=== PATIENT | female | born 1965 | race Caucasian/White ===

== ENCOUNTER 2019-03-09 11:50 | Emergency (ER) | payer SELFPAY ==
[~2019-03-09] VITALS: Ht 162.6 cm; Wt 108.9 kg
--- OUTSIDE RECORDS SUMMARY | 2019-03-09 12:02 | XMS REPORT ---
Author Author LIANNE MORENO [facility] Address [address] [place] [address] Care Team Providers Care Career Services Coordinator Name Role Phone LIANNE MORENO Unavailable PROBLEMS Type Condition ICD9-CM Code ATQ71-VO Code Onset Dates Condition Status SNOMED Code Problem Situational mixed anxiety and depressive disorder F43.23 Active 79598647 Problem History of myocardial infarction I25.2 Active 321468359 Problem Reflux esophagitis K21.0 Active 169190605 Problem Hypertension I10 Active 48961606 Problem Stress incontinence N39.3 Active 98689651 Problem Type 2 diabetes mellitus E11.9 Active 70389514 Problem Hiatal hernia K44.9 Active 67009483 Problem Coronary artery disease I25.10 Active 98509223 ALLERGIES No Information ENCOUNTERS Encounter Location Date Diagnosis [address] [address] Jan, Type 2 diabetes mellitus E11.9 and Hypertension I10 [address] [address] Jan, [address] [address] Jan, Morbid obesity E66.01 ; Type 2 diabetes mellitus E11.9 and Hypertension I10 [address] [address] Jan, [facility] [address] [id number] [id number] March, Dental examination Z01.20 and Dental caries K02.9 [facility] [address] [id number] [phone] March, Dental caries K02.9 and Dental examination Z01.20 [facility] [address] [id number] [id number] March, [facility] [address] [facility] [id number] [place] [address] March, Dental abscess K04.7 [facility] [address] [facility] [id number] [place] [address] May, IMMUNIZATIONS No Known Immunizations SOCIAL HISTORY Never Assessed REASON FOR VISIT Requests return call PLAN OF CARE VITAL SIGNS MEDICATIONS Medication Instructions Dosage Frequency Start Date End Date Duration Status Amlodipine Besylate 5 MG Orally Once a day 1 tablet 24h Jan, 30 day(s) Active Isosorbide Mononitrate ER 60 MG Orally Once a day 1 tablet in the morning 24h Jan, 30 day(s) Active RESULTS No Results PROCEDURES No Known procedures INSTRUCTIONS MEDICATIONS ADMINISTERED No Known Medications MEDICAL (GENERAL) HISTORY Type Description Date Medical History Coronary artery disease Medical History History of myocardial infarction Medical History Situational mixed anxiety and depressive disorder Medical History Reflux esophagitis Medical History Hiatal hernia Medical History Stress incontinence Medical History Type 2 diabetes mellitus Medical History Hypertension Surgical History Coronary artery bypass grafting 2006 Surgical History Coronary stent Surgical History upper endoscopy Surgical History hysterectomy for DUB Surgical History bladder suspension Surgical History left knee arthroscopic surgery Surgical History 2 c sections Surgical History ORIF jaw Hospitalization History surgery Hospitalization History when first DX with DM Hospitalization History surgery on jaw
--- OUTSIDE RECORDS SUMMARY | 2019-03-09 12:02 | XMS REPORT ---
Author Author LIANNE MORENO [facility] Address [address] [place] [address] Care Team Providers Care Shuttler Name Role Phone LIANNE MORENO Unavailable PROBLEMS Type Condition ICD9-CM Code FND18-AS Code Onset Dates Condition Status SNOMED Code Problem Breast tenderness 611.71 March, 0 13616602 Problem Morbid obesity with BMI of 45.0-49.9, adult 278.01 Oct, 0 098865542 Problem Urinary, incontinence, stress female 625.6 Oct, 0 80856134 Problem Well woman exam with routine gynecological exam V72.31 Sep, 0 [id number] Problem Hiatal hernia 553.3 Aug, 0 02469077 Problem Tobacco use 305.1 05 Sep, 2015 0 510899992 Problem Benign hypertension 401.1 March, 0 63027111 Problem Postoperative follow-up Z09 Oct, 0 792316770 Problem Tobacco use Z72.0 Sep, 0 490688687 Problem Midline cystocele 618.01 Oct, 0 379655992 Problem Patellofemoral syndrome, left 719.46 Oct, 0 552954087636673 Problem Situational mixed anxiety and depressive disorder 309.28 Oct, 0 35941906 Problem Postoperative follow-up V67.00 Oct, 0 266620592 Problem Morbid obesity with BMI of 45.0-49.9, adult E66.01 Oct, 0 335285260 Problem Well woman exam with routine gynecological exam Z01.419 Sep, 0 314811884062515 Problem Type 2 diabetes mellitus without complication E11.9 Jan, 0 337086318 Problem Patellofemoral syndrome, left M22.2X2 Oct, 0 489039870692166 Problem Urinary, incontinence, stress female N39.3 Oct, 0 14881411 Problem Midline cystocele N81.11 Oct, 0 273636253 Problem Breast tenderness N64.4 March, 0 28640851 Problem Benign hypertension I10 March, 0 41508258 Problem Type 2 diabetes mellitus without complication 250.00 Jan, 0 816860659 Problem Type 2 diabetes mellitus E11.9 Active 22528212 Problem Situational mixed anxiety and depressive disorder F43.23 Active 61555044 Problem Reflux esophagitis K21.0 Active 387211421 Problem Reflux esophagitis 530.11 0 457739852 Problem Hypertension I10 Active 47943196 Problem CAD (coronary artery disease) 414.00 Feb, 0 78290591 Problem CAD (coronary artery disease) I25.10 14 Feb, 2011 0 76392893 Problem History of myocardial infarction I25.2 Active 626181784 Problem Stress incontinence N39.3 Active 99450082 Problem Hiatal hernia K44.9 Active 12778939 Problem Coronary artery disease I25.10 Active 94382581 ALLERGIES No Information ENCOUNTERS Encounter Location Date Diagnosis [address] [address] Jan, Type 2 diabetes mellitus E11.9 and Hypertension I10 [address] [address] Jan, [address] [address] Jan, Morbid obesity E66.01 ; Type 2 diabetes mellitus E11.9 and Hypertension I10 [address] [address] Jan, [facility] [address] [address] Oct, [facility] [address] [id number] March, Dental examination Z01.20 and Dental caries K02.9 [facility] [address] [id number] March, Dental caries K02.9 and Dental examination Z01.20 [facility] [address], [place] [address] March, [facility] [address] [facility] [id number][place] [address] March, Dental abscess K04.7 [facility] [address] [facility] [id number][place] [address] May, [facility] [address] [facility] [id number], [place] [address] Jan, [facility] [address] [id number] [address] Nov, [facility] [address] [facility] [id number], [place] [address] Dec, [facility] [address] [facility] [id number], [place] [address] May, IMMUNIZATIONS No Known Immunizations SOCIAL HISTORY Never Assessed REASON FOR VISIT Lab (walk-in) PLAN OF CARE VITAL SIGNS MEDICATIONS Unknown Medications RESULTS No Results PROCEDURES Procedure Date Ordered Result Body Site VENIPUNCT, ROUTINE* January 12, 2019 MICROALBUMIN, QUANTITATIVE January 12, 2019 ASSAY OF URINE CREATININE January 12, 2019 Hemoglobin Test Send Out 0 dollar January 12, 2019 COMPREHEN METABOLIC PANEL January 12, 2019 INSTRUCTIONS MEDICATIONS ADMINISTERED No Known Medications MEDICAL [...]
--- OUTSIDE RECORDS SUMMARY | 2019-03-09 12:02 | XMS REPORT ---
Author Author LIANNE MORENO [facility] Address [address] [place] [address] Care Team Providers Care Director Utilization Management Name Role Phone LIANNE MORENO Unavailable PROBLEMS Type Condition ICD9-CM Code HNS06-DP Code Onset Dates Condition Status SNOMED Code Problem Situational mixed anxiety and depressive disorder F43.23 Active 98595333 Problem History of myocardial infarction I25.2 Active 997596237 Problem Reflux esophagitis K21.0 Active 677497897 Problem Hypertension I10 Active 46812862 Problem Stress incontinence N39.3 Active 30861850 Problem Type 2 diabetes mellitus E11.9 Active 61903960 Problem Hiatal hernia K44.9 Active 82203223 Problem Coronary artery disease I25.10 Active 06880549 ALLERGIES Substance Reaction Event Type Date Status Keflex nausea Drug Allergy Jan, Active Paper Tapes rash Non Drug Allergy Jan, Active ENCOUNTERS Encounter Location Date Diagnosis [address] [address] Jan, Type 2 diabetes mellitus E11.9 and Hypertension I10 [address] [address] Jan, [address] [address] Jan, Morbid obesity E66.01 ; Type 2 diabetes mellitus E11.9 and Hypertension I10 [address] [address] Jan, [facility] [address] [id number] [id number] March, Dental examination Z01.20 and Dental caries K02.9 [facility] [address] [id number] [id number] March, Dental caries K02.9 and Dental examination Z01.20 [facility] [address] [facility] [id number] [place] [address] March, [facility] [address] [facility] [id number] [place] [address] March, Dental abscess K04.7 [facility] [address] [facility] [id number] [place] [address] May, IMMUNIZATIONS No Known Immunizations SOCIAL HISTORY Never Assessed REASON FOR VISIT Establish Care, needs put back on DM needs.Kcox PLAN OF CARE Activity Details Follow Up 3 months or as indicated by lab, Reason: VITAL SIGNS Height 64 in 2019-01-10 Weight 236 lbs 2019-01-10 Temperature 99.2 degrees Fahrenheit 2019-01-10 Heart Rate 84 bpm 2019-01-10 Respiratory Rate 18 2019-01-10 BMI 40.5 kg/m2 2019-01-10 Blood pressure systolic 180 mmHg 2019-01-10 Blood pressure diastolic 110 mmHg 2019-01-10 MEDICATIONS Medication Instructions Dosage Frequency Start Date End Date Duration Status Levemir FlexTouch 100 UNIT/ML Subcutaneous at bedtime inject 45 units Jan, 30 days Active Coreg 25 MG Orally 2 times a day 1 tab 12h Active Ibuprofen Active Tylenol Not-Taking Lantus Not-Taking VESIcare 5 MG Orally Once a day 1 tablet 24h Jan, 30 day(s) Active Lisinopril 20 MG Orally Once a day 1 tablet 24h Active RESULTS No Results PROCEDURES No Known [...] Hypertension Surgical History Coronary artery bypass grafting 2007 Surgical History Coronary stent Surgical History upper endoscopy Surgical History hysterectomy for DUB Surgical History bladder suspension Surgical History left knee arthroscopic surgery Surgical History 2 c sections Surgical History ORIF jaw Hospitalization History surgery Hospitalization History when first DX with DM Hospitalization History surgery on jaw
--- OUTSIDE RECORDS SUMMARY | 2019-03-09 12:03 | XMS REPORT ---
Author Author CHAU JONES Organization [facility] Address [address] [place] [address] Care Team Providers Care Ticket Maker Name Role Phone CHAU JONES Unavailable PROBLEMS Unknown Problems ALLERGIES No Information ENCOUNTERS Encounter Location Date Diagnosis [facility] [id number] [place] [id number] March, Dental examination Z01.20 and Dental caries K02.9 [facility] [id number] [place] [id number] March, Dental caries K02.9 and Dental examination Z01.20 [facility] [id number] [place] [address] March, [facility] [id number] [place] [address] March, Dental abscess K04.7 [facility] [id number] [place] [address] May, IMMUNIZATIONS No Known Immunizations SOCIAL HISTORY Never Assessed REASON FOR VISIT Tooth pain PLAN OF CARE VITAL SIGNS MEDICATIONS Medication Instructions Dosage Frequency Start Date End Date Duration Status Amoxicillin 500 MG Orally every 8 hrs 1 capsule 8h March, 10 day( s) Active RESULTS No Results PROCEDURES No Known procedures INSTRUCTIONS MEDICATIONS ADMINISTERED No Known Medications MEDICAL (GENERAL) HISTORY Type Description Date Medical History Type II Diabetes Medical History Heart Attack, bypass 2007 with one stint Surgical History bypass surgery wwith one stint 2007 Hospitalization History surgery
--- OUTSIDE RECORDS SUMMARY | 2019-03-09 12:03 | XMS REPORT ---
Author Author BAN MORRIS Organization [facility] Address [address] [place] [address] Care Team Providers Care Side Seam Machine Operator Name Role Phone BAN MORRIS Unavailable PROBLEMS Unknown Problems ALLERGIES Substance Reaction Event Type Date Status Keflex nausea Drug Allergy March, Active Paper Tapes rash Non Drug Allergy March, Active ENCOUNTERS Encounter Location Date Diagnosis [facility] [address] [id number] March, Dental examination Z01.20 and Dental caries K02.9 [facility] [address] [id number] March, Dental caries K02.9 and Dental examination Z01.20 [facility] [id number] [place] [address] March, [facility] [address] [id number] March, Dental abscess K04.7 [facility] [id number] [place] [address] May, IMMUNIZATIONS No Known Immunizations SOCIAL HISTORY Never Assessed REASON FOR VISIT Severe tooth pain q 5 days, dental anxiety PLAN OF CARE Activity Details Follow Up TIFFANY Reason:MICHI VITAL SIGNS Blood pressure systolic 148 mmHg 2018-03-22 Blood pressure diastolic 98 mmHg 2018-03-22 MEDICATIONS Medication Instructions Dosage Frequency Start Date End Date Duration Status Lisinopril Active Coreg Active Tylenol Active Ibuprofen Active Lantus Active RESULTS No Results PROCEDURES Procedure Date Ordered Result Body Site INTRAORL-PERIAPICAL 1 FILM 81505 March 22, 2018 INTRAORL-PERIAPICAL EA ADD FILM March 22, 2018 Billing Notes on claim March 22, 2018 SCREENING OF A PATIENT March 22, 2018 INSTRUCTIONS MEDICATIONS ADMINISTERED No Known Medications MEDICAL (GENERAL) HISTORY Type Description Date Medical History Type II Diabetes Medical History Heart Attack, bypass 2006 with one stint Surgical History bypass surgery wwith one stint 2006 Hospitalization History surgery
--- OUTSIDE RECORDS SUMMARY | 2019-03-09 12:03 | XMS REPORT ---
Author Author DickNAGI Organization [facility] Address [address] [place] [address] Care Team Providers Care Web Press Operator Apprentice Name Role Phone NAGI Jennings Unavailable PROBLEMS Unknown Problems ALLERGIES Substance Reaction Event Type Date Status Keflex nausea Drug Allergy March, Active Paper Tapes rash Non Drug Allergy March, Active ENCOUNTERS Encounter Location Date Diagnosis [facility] [id number] [place] [phone] March, Dental examination Z01.20 and Dental caries K02.9 [facility] [id number] [place] [id number] March, Dental caries K02.9 and Dental examination Z01.20 [facility] [id number] [place] [address] March, [facility] [id number] [place] [address] March, Dental abscess K04.7 [facility] [id number] [place] [address] May, IMMUNIZATIONS No Known Immunizations SOCIAL HISTORY Never Assessed REASON FOR VISIT Dental Exam PLAN OF CARE Activity Details Follow Up prn Reason:JULIA VITAL SIGNS Blood pressure systolic 162 mmHg 2018-03-23 Blood pressure diastolic 108 mmHg 2018-03-23 MEDICATIONS Medication Instructions Dosage Frequency Start Date End Date Duration Status Amoxicillin 500 MG Orally every 8 hrs 1 capsule 8h March, 10 day( s) Active Ibuprofen Active Lantus Active Tylenol Active Lisinopril Active Coreg Active RESULTS No Results PROCEDURES Procedure Date Ordered Result Body Site LTD ORAL EVALUATION - PROBLEM FOCUS March 23, 2018 EXTRAC ERUPTED TOOTH/EXPOSED ROOT March 23, 2018 INSTRUCTIONS MEDICATIONS ADMINISTERED No Known Medications MEDICAL (GENERAL) HISTORY Type Description Date Medical History Type II Diabetes Medical History Heart Attack, bypass 2006 with one stint Surgical History bypass surgery wwith one stint 2006 Hospitalization History surgery
--- OUTSIDE RECORDS SUMMARY | 2019-03-09 12:03 | XMS REPORT ---
Author Author MAGALY DEAN [facility] Address Unknown Care Team Providers Care Dredge Hand Name Role Phone MAGALY DEAN Unavailable PROBLEMS Unknown Problems ALLERGIES Substance Reaction Event Type Date Status Keflex nausea Drug Allergy March, Active Paper Tapes rash Non Drug Allergy March, Active ENCOUNTERS Encounter Location Date Diagnosis [facility] [id number] [place] [id number] March, Dental examination Z01.20 and Dental caries K02.9 [facility] [id number] [place] [phone] March, Dental caries K02.9 and Dental examination Z01.20 [facility] [id number] [place] [address] March, [facility] [id number] [place] [address] March, Dental abscess K04.7 [facility] [id number] [place] [address] May, IMMUNIZATIONS No Known Immunizations SOCIAL HISTORY Never Assessed REASON FOR VISIT MICHI PLAN OF CARE Activity Details Follow Up prn Reason:mari/hygiene VITAL SIGNS Blood pressure systolic 160 mmHg 2018-03-29 Blood pressure diastolic 99 mmHg 2018-03-29 MEDICATIONS Medication Instructions Dosage Frequency Start Date End Date Duration Status Amoxicillin 500 MG Orally every 8 hrs 1 capsule 8h March, 10 day( s) Active Lantus Active Coreg Active Ibuprofen Active Tylenol Active Lisinopril Active RESULTS No Results PROCEDURES Procedure Date Ordered Result Body Site LTD ORAL EVALUATION - PROBLEM FOCUS March 29, 2018 BITEWING - SINGLE FILM March 29, 2018 EXTRAC ERUPTED TOOTH/EXPOSED ROOT March 29, 2018 EXTRAC ERUPTED TOOTH/EXPOSED ROOT March 29, 2018 INSTRUCTIONS MEDICATIONS ADMINISTERED No Known Medications MEDICAL (GENERAL) HISTORY Type Description Date Medical History Type II Diabetes Medical History Heart Attack, bypass 2006 with one stint Surgical History bypass surgery wwith one stint 2006 Hospitalization History surgery
[2019-03-09] MEDS ORDERED: morphine INJ 10 MG/ML 1ML (SYR OR VIAL) IVP STA (12:09)
[2019-03-09 12:13] LABS: HEMOGLOBIN 14.2 G/DL (11.5-16.0); WHITE BLOOD COUNT 11.2 10^3/uL (4.3-11.0)
[2019-03-09 12:14] LABS: MEAN PLATELET VOLUME 11.1 FL (7.4-10.4); RED CELL DISTRIBUTION WIDTH 13.2 % (10.0-14.5)
[2019-03-09] MEDS ORDERED: ONDANSETRON 4 MG/2 ML (SDV) Z0FRAN IVP ONE (12:15)
[2019-03-09] MEDS ORDERED: NS IV 1000 ML 1,000 ML IV SCH (12:15)
--- NOTE | 2019-03-09 12:33 | ED Headache ---
General Chief Complaint: Head/Cervical Problems Stated Complaint: LT EYE ISSUE; HIGH BP; HEADACHE Source: patient History of Present Illness Date Seen by Provider: March 09, 2019 Time Seen by Provider: 11:30 Initial Comments She is a 53-year-old female presents with sudden onset headache while at work, left scleral hemorrhage and hypertension. Patient denies history of headaches and states blood pressures normally well controlled. Headache is described as dull aching is associated with nausea. No neck pain, stiffness. No sinus pain, tenderness, congestion. No fever chills or sweats. No chest pain or shortness of breath. [facility] and was referred to the ED for further evaluation. Timing/Duration: 1-3 hours Severity/Quality: severe Location: frontal Prior Headaches/Recent Trauma: no recent headache/trauma Modifying Factors: improves with rest Associated Symptoms: denies symptoms; No confusion, No fatigue, No facial pain , No loss of consciousness, No numbness in legs/feet, No rash, No sinus infection, No stiff neck, No vision changes, No weakness Allergies and Home Medications Allergies Coded Allergies: cephalexin (Verified Allergy, Unknown, vomiting, 03/09/19) Uncoded Allergies: PAPER TAPE (Allergy, Unknown, 03/09/19) Patient Home Medication List Home Medication List Reviewed: Yes Review of Systems Review of Systems Constitutional: no symptoms reported, see HPI Eyes: No Symptoms Reported, See HPI; Denies Blurred Vision Ears, Nose, Mouth, Throat: no symptoms reported, see HPI, ear pain Respiratory: no symptoms reported, see HPI Cardiovascular: no symptoms reported, see HPI Genitourinary: no symptoms reported Musculoskeletal: no symptoms reported, see HPI Skin: no symptoms reported, see HPI Psychiatric/Neurological: No Symptoms Reported, See HPI Past Lrxndnb-Twrfzv-Vbqcoi Hx Past Med/Social Hx: Reviewed Nursing Past Med/Soc Hx Physical Exam Vital Signs Capillary Refill : Height, Weight, BMI Height: '" Weight: lbs. oz. kg; BMI Method: General Appearance: WD/WN, mild distress HEENT: normal ENT inspection, other (left subconjunctival hemorrhage) Neck: non-tender, full range of motion, supple Cardiovascular: regular rate, rhythm Respiratory: chest non-tender, lungs clear Gastrointestinal: normal bowel sounds Back: normal inspection Psychiatric: alert, oriented x 3 Crainal Nerves: normal hearing, normal speech, PERRL Coordination/Gait: normal gait Motor/Sensory: no motor deficit, no sensory deficit Progress/Results/Core Measures Results/Orders Lab Results Laboratory Tests Test 03/09/19 12:06 Range/Units White Blood Count 11.2 H 4.3-11.0 10^3/uL Red Blood Count 4.76 4.35-5.85 10^6/uL Hemoglobin 14.2 11.5-16.0 G/DL Hematocrit 43 35-52 % Mean Corpuscular Volume 89 80-99 FL Mean Corpuscular Hemoglobin 30 25-34 PG Mean Corpuscular Hemoglobin Concent 33 32-36 G/DL Red Cell Distribution Width 13.2 10.0-14.5 % Platelet Count 241 130-400 10^3/uL Mean Platelet Volume 11.1 H 7.4-10.4 FL Sodium Level 142 135-145 MMOL/L Potassium Level 3.8 3.6-5.0 MMOL/L Chloride Level 104 98-107 MMOL/L Carbon Dioxide Level 28 21-32 MMOL/L Anion Gap 10 5-14 MMOL/L Blood Urea Nitrogen 17 7-18 MG/DL Creatinine 0.60 0.60-1.30 MG/DL Estimat Glomerular Filtration Rate > 60 BUN/Creatinine Ratio 28 Glucose Level 191 H 70-105 MG/DL Calcium Level 9.2 8.5-10.1 MG/DL My Orders Orders - BLANCA GOINS DO Ct Head Wo (03/09/19 11:57) Cbc No Diff (03/09/19 11:57) Basic Metabolic Panel (03/09/19 11:57) Ondansetron Injection (Zofran Injectio (03/09/19 12:15) Morphine Injection (Morphine Injection (03/09/19 12:09) Ns Iv 1000 Ml (Sodium Chloride 0.9%) (03/09/19 12:15) Medications Given in ED Current Medications Medications Dose Ordered Sig/Gerardo Route Start Time Stop Time Status Last Admin Dose Admin Ondansetron HCl 4 mg ONCE ONCE IVP 03/09/19 12:15 03/09/19 12:16 DC 03/09/19 12:35 4 MG Departure Communication (Admissions) Patient resting comfortably, symptoms improved with treatment of pain. No neurologic deficits on exam. Blood pressure improved likely secondary to pain.. Findings of chronic left maxillary sinusitis likely contributing to symptoms. Will place patient on prolonged course of antibiotics, follow up with PCP for reevaluation. Return precautions reviewed. Patient verbalizes understanding Gribben discharge instructions prior to departure. Impression Primary Impression: Headache Additional Impression: Maxillary sinusitis, chronic Disposition: 01 HOME, SELF-CARE Condition: Improved Departure-Patient Inst. Referrals: [facility]/DANILO (PCP) Primary Care Physician LIANNE MORENO APRN (Family) Primary Care Physician Patient Instructions: Chronic Sinusitis, Headache, Adult (DC) Add. Discharge Instructions: Please take antibiotics as directed, ibuprofen for pain and hydrocodone as needed for additional relief. Follow-up with your PCP in 1-2 weeks for reevaluation. Return to the ED if new or worsening symptoms. All discharge instructions reviewed with patient and/or family. Voiced understanding. Scripts Amoxicillin (Amoxicillin) 875 Mg Tablet 875 MG PO BID, #28 TAB Prov: BLANCA GOINS DO 03/09/19 Hydrocodone/Acetaminophen (Gates 5-325 Tablet) 1 Each Tablet 1 TAB PO Q4-6HR for Pain MDD 10 TABS for 7 Days, #10 TAB Prov: BLANCA GOINS DO 03/09/19 BLANCA GOINS DO March 09, 2019 12:33
--- NOTE | 2019-03-09 12:34 | Diagnostic Imaging Report ---
CLINICAL INDICATION: Patient with eye irritation, headache, and high blood pressure. EXAM: Axial CT scan of the brain without IV contrast. COMPARISON: None. FINDINGS: There is no evidence of acute cerebral infarct, intracranial hemorrhage, or gross mass effect. There is brain parenchymal volume loss mainly in the frontal region. There is normal stokes-white matter distinction. There is no significant midline shift or herniation. There is no evidence of hydrocephalus. The basal cisterns are unremarkable. The skull, extracranial soft tissue, and orbits are unremarkable. There is incompletely imaged consolidation of the left maxillary sinus with chronic bony sclerosis and thickening in the region. Temporal bones show no significant abnormality. IMPRESSION: 1: There is no evidence of acute intracranial process. 2: Incompletely imaged left maxillary sinusitis. Dictated by: Dictated on workstation # [id number]
[2019-03-09 12:38] LABS: BUN/CREATININE RATIO 28; CALCIUM 9.2 MG/DL (8.5-10.1); CARBON DIOXIDE 28 MMOL/L (21-32); CHLORIDE 104 MMOL/L (98-107); GFR ESTIMATED > 60; GLUCOSE 191 MG/DL (70-105); POTASSIUM 3.8 MMOL/L (3.6-5.0); SODIUM 142 MMOL/L (135-145)
[2019-03-09] MEDS ORDERED: HYDR-4226 PO (12:51)
[2019-03-09] MEDS ORDERED: AMOX875T2 PO (12:52)
[2019-03-09 13:04] VITALS: BP 150/72
== END 2019-03-09 13:19 | disposition home or self-care (01) ==
LOC: ER FS 11:53
DX: R51 Headache (principal); J32.0 Chronic maxillary sinusitis; I10 Essential (primary) hypertension; Z88.1 Allergy status to other antibiotic agents; Z91.048 Other nonmedicinal substance allergy status
CPT/HCPCS: 36415; 70450; 80048; 85027

== ENCOUNTER 2020-04-07 23:15 | Day surgery (SDC) | payer SELFPAY ==
[~2020-04-07] VITALS: Ht 162.5 cm; Wt 115.8 kg
[2020-04-07 23:15] VITALS: BP 157/73
[~2020-04-07 23:15] MED LIST: ALPRAZolam 0.25 MG (XANAX) TAB PO PRN; AMOX875T2 PO; DOCUSATE SODIUM 100 MG (COLACE) CAP PO PRN; HYDR-4226 PO; IBUPROFEN TABLET 200 MG TAB PO PRN; MELATONIN 3 MG TABLET PO PRN; ONDANSETRON 4 MG/2 ML (SDV) Z0FRAN IVP PRN; diphenhydrAMINE 25 MG TAB (BENADRYL) PO PRN; fentaNYL INJECTION 100 MCG/2 ML AMP IVP PRN; guaiFENesin/DM (ROBITUSSIN DM) 10 ML UDC PO PRN; polyethylene glycoL POWDER 17 GM (MIRALAX) PACK PO PRN
--- NOTE | 2020-04-07 23:15 | NUR ---
MARGO OCONNOR admitted to room CU8-1, with an admitting diagnosis of chest pain, shortness of breath, on 04/07/20 from [facility] via EMS, accompanied by EMS staff. MARGO OCONNOR introduced to surroundings, call light, bed controls, phone, TV, temperature control, lights, meal times, smoking policy, visitor policy, side rail policy, bathrooms and showers. Patient Rights given to patient in the handbook. MARGO OCONNOR verbalizes understanding that [facility] is not responsible for the loss or damage to any personal effects or valuables that are kept in the patients possession during their hospitalization. The following Patient Care Plans were discussed with the patient: Discharge Planning, pain management,activity, and room orientation. MARGO OCONNOR verbalizes understanding of Interdisciplinary Patient Education. Patient and/or family were informed about the Rapid Response Team and its purpose.
--- OUTSIDE RECORDS SUMMARY | 2020-04-07 23:28 | XMS REPORT | Continuity of Care Document ---
Author Organization Unknown Address Unknown Phone Unavailable Allergies Active Description Code Type Severity Reaction Onset Reported/Identified Relationship to Patient Clinical Status Yes cephalexin [id number] Drug Allerg y Unknown vomiting 03/09/2019 Yes PAPER TAPE PAPER TAPE Unknown N/A 03/09/2019 Medications There is no data. Problems Date Dx Coded Attending Type Code Diagnosis Diagnosed By 03/09/2019 BLANCA GOINS DO, Ot I10 ESSENTIAL (PRIMARY) HYPERTENSION 03/09/2019 BLANCA GOINS DO Ot J32.0 CHRONIC MAXILLARY SINUSITIS 03/09/2019 BRISEIDA REINA BLANCA Ot R51 HEADACHE 03/09/2019 BLANCA GOINS DO Ot Z88.1 ALLERGY STATUS TO OTHER ANTIBIOTIC AGENT 03/09/2019 BLANCA GOINS DO Ot Z91.048 OTHER NONMEDICINAL SUBSTANCE ALLERGY STA 2019 BLANCA GOINS DO Ot I10 ESSENTIAL (PRIMARY) HYPERTENSION 2019 BLANCA GOINS DO Ot J32.0 CHRONIC MAXILLARY SINUSITIS 2019 BLANCA GOINS DO Ot R51 HEADACHE 2019 BLANCA GOINS DO Ot Z88.1 ALLERGY STATUS TO OTHER ANTIBIOTIC AGENT 2019 BLANCA GOINS DO Ot Z91.048 OTHER NONMEDICINAL SUBSTANCE ALLERGY STA Procedures There is no data. Results Test Result Range A1C - 01/12/19 11:12 HEMOGLOBIN A1c 11.6 % of total Hgb <5.7 Automated blood complete blood count (he mogram) panel - 03/09/19 12:06 Blood leukocytes automated count (number/volume) 11.2 10*3/uL 4.3-11.0 Blood erythrocytes automated count (number/volume) 4.76 10*6/uL 4.35-5.85 Venous blood hemoglobin measurement (mass/volume) 14.2 g/dL 11.5-16.0 Blood hematocrit (volume fraction) 43 % 35-52 Automated erythrocyte mean corpuscular volume 89 [ foz_us] 80-99 Automated erythrocyte mean corpuscular h emoglobin (mass per erythrocyte) 30 pg 25-34 Automated erythrocyte mean corpuscular h emoglobin concentration measurement (mass/volume) 33 g/dL 32-36 Automated erythrocyte distribution width ratio 13. 2 % 10.0- 14.5 Automated blood platelet count (count/volume) 241 10*3/uL 130-400 Automated blood platelet mean volume measurement 11.1 [foz_us] 7.4-10.4 Whole blood basic metabolic panel - 12/27 12:06 Serum or plasma sodium measurement (moles/volume) 142 mmol/L 135-145 Serum or plasma potassium measurement (moles/volume) 3.8 mmol/L 3.6-5.0 Serum or plasma chloride measurement (moles/volume) 104 mmol/L 98-107 Carbon dioxide 28 mmol/L 21-32 Serum or plasma anion gap determination (moles/volume) 10 mmol/L 5-14 Serum or plasma urea nitrogen measurement (mass/volume ) 17 mg/dL 7-18 Serum or plasma creatinine measurement (mass/volume) 0.60 mg/dL 0.60-1.30 Serum or plasma urea nitrogen/creatinine mass ratio 28 NRG Serum or plasma creatinine measurement w ith calculation of estimated glomerular filtration rate > NRG Serum or plasma glucose measurement (mass/volume) 191 mg/dL 70-105 Serum or plasma calcium measurement (mass/volume) 9.2 mg/dL 8.5-10.1 LIPID PANEL - 10/16/19 09:35 CHOLESTEROL, TOTAL 190 mg/dL <200 HDL CHOLESTEROL 45 mg/dL >50 TRIGLYCERIDES 148 mg/dL <150 LDL-CHOLESTEROL 119 mg/dL (calc) NRG CHOL/HDLC RATIO 4.2 (calc) <5.0 NON HDL CHOLESTEROL 145 mg/dL (calc) <13 0 CMP - 10/16/19 09:35 GLUCOSE 254 mg/dL 65-99 UREA NITROGEN (BUN) 21 mg/dL 7-25 CREATININE 0.73 mg/dL 0.50-1.05 eGFR NON-AFR. CAMBODIAN 94 mL/min/1.73m2 > OR = 60 eGFR 109 mL/min/1.73m2 > OR = 60 BUN/CREATININE RATIO NOT APPLICABLE (calc) 6-22 SODIUM 140 mmol/L 135-146 POTASSIUM 4.2 mmol/L 3.5-5.3 CHLORIDE 106 mmol/L 98-110 CARBON DIOXIDE 25 mmol/L 20-32 CALCIUM 8.9 mg/dL 8.6-10.4 PROTEIN, TOTAL 5.8 g/dL 6.1-8.1 ALBUMIN 3.8 g/dL 3.6-5.1 GLOBULIN 2.0 g/dL (calc) 1.9-3.7 ALBUMIN/GLOBULIN RATIO 1.9 (calc) 1.0-2. 5 BILIRUBIN, TOTAL 0.4 mg/dL 0.2-1.2 ALKALINE PHOSPHATASE 83 U/L 33-130 AST 8 U/L 10-35 ALT 9 U/L 6-29 Encounters ACCT No. Visit Date/Time Discharge Status Pt. Type Provider Facility Loc./Unit Complaint [id number] 03/09/2019 11:20:00 03/09/2019 23:59: 59 CLS Outpatient LIANNE MORENO [facility] [id number] 10/16/2019 08:40:00 Document Registration [id number] 01/12/2019 12:00:00 Document Registration [id number] 11/22/2019 12:30:00 23:59:59 CLS ARIEL Buchanan MD [facility] CARD CHEST PAIN,CORONARY ART DISEASE,HYPERTENSION [id number] 11/20/2019 10:30:00 23:59:59 CLS ARIEL Buchanan MD [facility] CARD CHEST PAIN,CORONARY ART DISEASE,ESSENTIAL HYPERTEN [id number] 03/09/2019 11:53:00 13:19:00 DIS Emergency BLANCA GOINS DO [facility] ER FS LT EYE ISSUE; HIGH BP; HEADACHE
[2020-04-07 23:30] VITALS: BP 152/83
[2020-04-07 23:45] VITALS: BP 164/93
[2020-04-08] VITALS (25 sets, daily range): BP systolic 122–167; BP diastolic 69–110
[2020-04-08] MEDS: ENOXAPARIN 40 MG/0.4 ML (LOVENOX) SYR SC SCH
[2020-04-08] MEDS: ACETAMINOPHEN 325 MG TABLET PO PRN ×2 (00:01→22:18)
--- NOTE | 2020-04-08 00:32 | NUR ---
Call to E ICU, update given to the Dr. Orders requested for Levemir insulin scheduled and Nitro PRN.
[2020-04-08] MEDS ORDERED: diphenhydrAMINE 25 MG TAB (BENADRYL) PO PRN (00:45)
[2020-04-08] MEDS: NITROGLYCERIN 0.4 MG SL TABS BTL 25'S SL PRN ×2 (01:10→01:17)
--- NOTE | 2020-04-08 01:10 | NUR ---
Nitro SL x 1 admin at this time for c/o CP @ 6 on 1-10 pain scale. BP 167/95
--- NOTE | 2020-04-08 01:16 | NUR ---
BP 134/84
--- NOTE | 2020-04-08 01:17 | NUR ---
Nitro x 1 admin at this time. CP rated 6
[2020-04-08 03:38] LABS: BASOPHILS % (AUTO) 0 % (0-10); EOSINOPHILS # (AUTO) 0.1 10^3/uL (0.0-0.3); EOSINOPHILS % (AUTO) 1 % (0-10); HEMATOCRIT 42 % (35-52); HEMOGLOBIN 14.4 G/DL (11.5-16.0); LYMPHOCYTES # (AUTO) 4.2 X 10^3 (1.0-4.0); LYMPHOCYTES % (AUTO) 38 % (12-44); MEAN CORPUSCULAR HEMOGLOBIN 31 PG (25-34); MEAN CORPUSCULAR HGB CONC 34 G/DL (32-36); MEAN CORPUSCULAR VOLUME 90 FL (80-99); MEAN PLATELET VOLUME 11.7 FL (7.4-10.4); MONOCYTES # (AUTO) 0.8 X 10^3 (0.0-1.0); MONOCYTES % (AUTO) 7 % (0-12); NEUTROPHILS # (AUTO) 5.8 X 10^3 (1.8-7.8); NEUTROPHILS % (AUTO) 54 % (42-75); PLATELET COUNT 192 10^3/uL (130-400); RED CELL DISTRIBUTION WIDTH 13.6 % (10.0-14.5); WHITE BLOOD COUNT 10.8 10^3/uL (4.3-11.0)
[2020-04-08 03:44] LABS: CHLORIDE 101 MMOL/L (98-107); POTASSIUM 3.8 MMOL/L (3.6-5.0); SODIUM 137 MMOL/L (135-145)
[2020-04-08 03:45] LABS: CALCIUM 9.4 MG/DL (8.5-10.1)
[2020-04-08 03:46] LABS: GLUCOSE 301 MG/DL (70-105)
[2020-04-08 03:47] LABS: CARBON DIOXIDE 23 MMOL/L (21-32)
[2020-04-08 03:49] LABS: CREATININE SERUM 0.86 MG/DL (0.60-1.30); GFR ESTIMATED > 60; PHOSPHORUS 4.3 MG/DL (2.3-4.7)
[2020-04-08 03:51] LABS: BUN/CREATININE RATIO 19
[2020-04-08 03:52] LABS: MAGNESIUM 1.8 MG/DL (1.6-2.4)
[2020-04-08] MEDS: KCL 20 MEQ TAB (K-DUR) PO SCH (04:17)
[2020-04-08] MEDS: MAGNESIUM 1 GM/100 ML IVPB 100 ML IV SCH (04:17)
[2020-04-08] MEDS: POTASSIUM CL 10MEQ/50ML IVPB 50 ML IV SCH (04:17)
--- NOTE | 2020-04-08 06:35 | Pulmonary Consultation ---
History of Present Illness History of Present Illness Date Seen by Provider: Apr 08, 2020 Time Seen by Provider: 06:32 Date of Admission History of Present Illness 55yo with hx of CAD presented to ED secondary to CP and found to have HTN urgency. She was given Nitroclycerin. CP has resolved. Cardiology is consulted. Has had similar prior episodes. I am consulted for ICU management. Allergies and Home Medications Allergies Coded Allergies: cephalexin (Verified Allergy, Unknown, vomiting, 03/09/19) Uncoded Allergies: PAPER TAPE (Allergy, Unknown, 03/09/19) Home Medications Acetaminophen 500 Mg Tablet, 1,000 MG PO Q8H PRN for PAIN-MILD (1-4), (Reported) Amlodipine Besylate 5 Mg Tablet, 5 MG PO DAILY, (Reported) Aspirin 81 Mg Tablet.dr, 81 MG PO DAILY Prescribed by: ARIEL LEYVA on 04/09/20 0858 Carvedilol 25 Mg Tab, 25 MG PO BID, (Reported) LAST FILLED 06-12-2019 #60/30DS Clopidogrel Bisulfate 75 Mg Tablet, 75 MG PO DAILY Prescribed by: ARIEL LEYVA on 04/09/20 0858 Insulin Detemir 100 Unit/1 Ml Insuln.pen, 45 UNIT SQ HS, (Reported) Isosorbide Mononitrate 60 Mg Tab, 60 MG PO DAILY, (Reported) Lisinopril 20 Mg Tablet, 20 MG PO DAILY, (Reported) Pantoprazole Sodium 40 Mg Granpkt.dr, 40 MG PO DAILY Prescribed by: ARIEL LEYVA on 04/09/20 0858 Rosuvastatin Calcium 10 Mg Tablet, 10 MG PO HS Prescribed by: ARIEL LEYVA on 04/09/20 0858 Solifenacin Succinate 5 Mg Tablet, 5 MG PO DAILY, (Reported) Past Cotcqws-Czequr-Eqcokt Hx Patient Social History Alcohol Use: Denies Use Recreational Drug Use: No Smoking Status: Current Everyday Smoker Type Used: Cigarettes 2nd Hand Smoke Exposure: Yes Recent Foreign Travel: No Contact w/Someone Who Travel: No Recent Infectious Disease Expo: No Recent Hopitalizations: No Immunizations Up To Date PED Vaccines UTD: No Seasonal Allergies Seasonal Allergies: No Past Medical History Surgeries: Yes CABG Respiratory: No Currently Using CPAP: No Currently Using BIPAP: No Cardiac: Yes Hypertension Neurological: No : No Sexually Transmitted Disease: No HIV/AIDS: No Genitourinary: No Gastrointestinal: Yes Gastroesophageal Reflux Musculoskeletal: Yes Arthritis Endocrine: Yes Diabetes, Insulin dep Are Your Blood Sugars Over 250: No HEENT: No Cancer: No Psychosocial: Yes Anxiety Integumentary: No Blood Disorders: No Adverse Reaction/Blood Tranf: No Family Medical History Cardiovascular disease 19 MOTHER, Onset:Unknown G8 SISTER, Onset:Unknown Congenital heart disease Diabetes mellitus 19 MOTHER, Onset:Unknown G8 SISTER, Onset:Unknown Review of Systems Time Seen by Provider: 10:17 Sepsis Event Evaluation Height, Weight, BMI Height: 5'4.00" Weight: 240lbs. oz. 108.521033rf; 44.19 BMI Method:Stated Exam Exam Vital Signs Date Time Temp Pulse Resp B/P (MAP) Pulse Ox O2 Delivery O2 Flow Rate FiO2 04/08/20 06:00 71 19 153/99 (117) 94 Nasal Cannula 2.00 04/08/20 05:00 74 144/99 (114) 95 Nasal Cannula 2.00 04/08/20 04:00 79 153/94 (113) 95 Nasal Cannula 2.00 04/08/20 03:10 96 Nasal Cannula 2.00 04/08/20 03:00 79 146/94 (111) 94 Nasal Cannula 2.00 04/08/20 02:55 36.7 Nasal Cannula 2.00 04/08/20 02:00 73 133/83 (100) 96 Nasal Cannula 2.00 04/08/20 01:30 85 17 133/81 (98) 94 Nasal Cannula 2.00 04/08/20 01:15 80 14 134/84 (101) 95 Nasal Cannula 2.00 04/08/20 01:00 80 18 167/95 (119) 94 Nasal Cannula 2.00 04/08/20 01:00 80 04/08/20 00:45 79 28 161/95 (117) 95 Nasal Cannula 2.00 04/08/20 00:30 79 15 139/86 (103) 98 Nasal Cannula 2.00 04/08/20 00:15 77 20 126/110 (115) 97 Nasal Cannula 2.00 04/08/20 00:00 85 31 160/91 (114) 98 Nasal Cannula 2.00 04/07/20 23:55 Nasal Cannula 2.00 04/07/20 23:45 87 11 164/93 (116) 98 Room Air 04/07/20 23:30 79 19 152/83 (106) 95 Room Air 04/07/20 23:18 74 04/07/20 23:15 36.0 73 12 157/73 (101) 96 Room Air I & O 04/08/20 07:00 Intake Total 450 ml Output Total 0 ml Balance 450 ml Height & Weight Height: 5'4.00" Weight: 240lbs. oz. 108.733951zh; 44.19 BMI Method:Stated General Appearance: Moderate Distress HEENT: PERRL/EOMI, TMs Normal Neck: Full Range of Motion, Non Tender, Supple Respiratory: Chest Non Tender, No Accessory Muscle Use, No Respiratory Distress, Crackles, Decreased Breath Sounds Cardiovascular: Regular Rate, Rhythm, No JVD, No Murmur Capillary Refill: Less Than 3 Seconds Gastrointestinal: normal bowel sounds, non tender, soft Extremity: Normal Capillary Refill, Normal Inspection Neurologic/Psychiatric: Alert Skin: Normal Color, Warm/Dry Lymphatic: No Adenopathy Results Lab Laboratory Tests 04/08/20 03:07 Assessment/Plan Assessment/Plan Acute SOB with CP r/o [place] -Cardiology consulted -troponin neg x 2 Tobacco dependance -Does not use home oxygen -Start Duoneb Q 6 hx of CABG/CAD JM DRUMMOND DO Apr 08, 2020 06:35
--- NOTE | 2020-04-08 06:41 | History & Physical-Hospitalist ---
History of Present Illness HPI/Chief Complaint CC: Chest Pain HPI: This is a 55yoWF clinic pt of [facility] who sees Dr. Valera at because of previous bypass sx in 2006 who presented to [facility] with chest pain, Troponin was negative but it appeared she had hypertensive urgency at the same time. Nitroglycerin given with good chest pain results of resolution but was in need of cardiology management transferred over to [facility]. At this current time pt denies any chest pain and stress test will be scheduled for today then possible catheterization tomorrow. She has had cardiac catheterization and stents placed since her bypass surgery and she still continues to smoke. Source: patient Exam Limitations: no limitations Date Seen 04/08/20 Time Seen by a Provider: 09:00 Attending Physician Blessing Turcios DO [facility] Referring Physician Date of Admission April 07, 2020 at 23:15 Home Medications & Allergies Home Medications Reviewed patient Home Medication Reconciliation performed by pharmacy medication reconciliations certified technician specialist and/or nursing. Patients Allergies have been reviewed. Allergies Allergies Coded Allergies cephalexin (Verified Allergy, Unknown, vomiting, 03/09/19) Uncoded Allergies PAPER TAPE ( Allergy, Unknown, 03/09/19) Past Defsqit-Sjeeul-Hpcubd Hx Past Med/Social Hx: Reviewed Nursing Past Med/Soc Hx, Reviewed and Corrections made Patient Social History Marrital Status: Employed/Student: employed ([employer]) Alcohol Use: Denies Use Recreational Drug Use: No Smoking Status: Current Everyday Smoker Type Used: Cigarettes 2nd Hand Smoke Exposure: Yes Physical Abuse Screen: No Sexual Abuse: No Recent Foreign Travel: No Contact w/other who traveled: No Recent Hopitalizations: No Recent Infectious Disease Expo: No Immunizations Up To Date Pediatric: No Seasonal Allergies Seasonal Allergies: No Past Medical History Surgeries: CABG Currently Using CPAP: No Currently Using BIPAP: No Cardiac: Coronary Artery Disease, Hypertension : No Sexually Transmitted Disease: No HIV/AIDS: No Gastrointestinal: Gastroesophageal Reflux Musculoskeletal: Arthritis Endocrine: Diabetes, Insulin dep Are Your Blood Sugars Over 250: No Psychosocial: Anxiety History of Blood Disorders: No Adverse Reaction to Blood Zavala: No Family History Cardiovascular disease 19 MOTHER, Onset:Unknown G8 SISTER, Onset:Unknown Congenital heart disease Diabetes mellitus 19 MOTHER, Onset:Unknown G8 SISTER, Onset:Unknown Review of Systems Constitutional: see HPI Cardiovascular: chest pain Physical Exam Physical Exam Vital Signs Vital Signs - First Documented 5/31/20 5/31/20 23:15 23:55 Temp 36.0 Pulse 73 Resp 12 B/P (MAP) 157/73 (101) Pulse Ox 96 O2 Delivery Room Air O2 Flow Rate 2.00 Capillary Refill : Less Than 3 Seconds Height, Weight, BMI Height: 5'4.00" Weight: 240lbs. oz. 108.271821ef; 44.19 BMI Method:Stated General Appearance: No Apparent Distress, Chronically ill, Obese Eyes: Right Eye Normal Inspection, Right Eye PERRL HEENT: PERRL/EOMI, Normal ENT Inspection, Pharynx Normal, Moist Mucous Membranes Neck: Full Range of Motion, Normal Inspection, Non Tender Respiratory: Chest Non Tender, Lungs Clear, Normal Breath Sounds, No Accessory Muscle Use, No Respiratory Distress Cardiovascular: Regular Rate, Rhythm, No Edema, No Gallop, No JVD, No Murmur, Normal Peripheral Pulses Gastrointestinal: Normal Bowel Sounds, No Organomegaly, No Pulsatile Mass, Non Tender, Soft Back: Normal Inspection, No CVA Tenderness, No Vertebral Tenderness Extremity: Normal Capillary Refill, Normal Inspection, Normal Range of Motion, Non Tender, No Calf Tenderness, No Pedal Edema Neurologic/Psychiatric: Alert, Oriented x3, No Motor/Sensory Deficits, Normal Mood/Affect Skin: Normal Color, Warm/Dry Lymphatic: No Adenopathy Results Results/Procedures Labs Laboratory Tests 04/08/20 03:07 Patient resulted labs reviewed. Assessment/Plan Admission Diagnosis Assessment: Unstable angina Hypertensive urgency in [facility] ER Smoker CAD previous CABG DM GERD Obesity Plan: EST Cath? Home meds O2 Admission Status: Observation Diagnosis/Problems Diagnosis/Problems (1) Chest pain (2) Hypertensive urgency (3) CAD (coronary artery disease) (4) Hx of CABG (5) Smoker (6) GERD (gastroesophageal reflux disease) (7) Diabetes mellitus Clinical Quality Measures DVT/VTE Risk/Contraindication: Risk Factor Score Per Nursin RFS Level Per Nursing on Admit: 4+=Very High BLESSING TURCIOS DO Apr 08, 2020 06:41
[2020-04-08] MEDS ORDERED: REGADENOSON 0.4 MG/5 ML SYR (LEXISCAN) IV ONE ×2 (08:00→11:56)
--- NOTE | 2020-04-08 08:18 | Diagnostic Imaging Report ---
Portable erect AP chest at 342 hours. INDICATION: Dyspnea. There are no prior studies available for comparison. FINDINGS: The heart is borderline enlarged and there are sternal wires and surgical clips evident. The lungs are generally clear although the left lung base is partially opacified by overlying breast/chest tissue. There is no evidence for overt failure, pneumonia or for significant pleural effusion. The mediastinum is not widened. The osseous structures are intact. IMPRESSION: 1. There is borderline cardiomegaly and evidence of prior cardiac surgery but there is no sign of an acute abnormality. 2. If clinical concern regarding an underlying abnormality persists, then follow-up PA and lateral chest would be recommended for further study. Dictated by: Dictated on workstation # [id number]
--- NOTE | 2020-04-08 10:04 | Consultation-Cardiology ---
HPI-Cardiology Cardiology Consultation Date of Consultation 04/08/20 Date of Admission Time Seen by Provider: 10:01 Indication: chest pain HPI 55-year-old lady with history of coronary artery disease, suffered myocardial infarction in her mid 40s and required CABG 1 in 2006, patient reported having a stent done to her left arm probably to the left subclavian artery done in 2009 at , does not have any records of the procedures. She is an active smoker with history of hypertension, hyperlipidemia and diabetes mellitus. Has been compliant with her medication, for the past 2 weeks she is been having increasing chest pain with exertion dull achiness radiating to both arms mainly to the left arm. Started to have significant pain yesterday started with the bottom of her neck radiating to the upper chest and both arms, reported that it was similar to the pain that she had when she had her heart attack. Came into the emergency room, reported some improvement with nitroglycerin but no full resolution, the pain improved after fentanyl. Currently laying down in bed, feeling better. No new complaint Home Medications & Allergies Allergies: Coded Allergies: cephalexin (Verified Allergy, Unknown, vomiting, 03/09/19) Uncoded Allergies: PAPER TAPE (Allergy, Unknown, 03/09/19) Home Medication List Reviewed: Yes SUP-Djxdzi-Cuoicf Hx Patient Social History Marital Status: Employed/Student: employed Alcohol Use: Denies Use Recreational Drug Use: No Smoking Status: Current Everyday Smoker Type Used: Cigarettes 2nd Hand Smoke Exposure: Yes Recent Foreign Travel: No Recent Infectious Disease Expo: No Recent Hopitalizations: No Physical Abuse Screen: No Sexual Abuse: No Past Medical History Discussed below Family Medical History Family History: Cardiovascular disease 19 MOTHER, Onset:Unknown G8 SISTER, Onset:Unknown Congenital heart disease Diabetes mellitus 19 MOTHER, Onset:Unknown G8 SISTER, Onset:Unknown Review of Systems-General Review of Systems Constitutional: no symptoms reported, see HPI, diaphoresis, malaise EENTM: see HPI, no symptoms reported Respiratory: see HPI; No cough; dyspnea on exertion; No hemoptysis, No orthopnea, No phlegm; short of breath; No stridor, No wheezing, No other Cardiovascular: see HPI, chest pain; No edema, No Hx of Intervention, No palpitations, No syncope, No vascular heart diseas, No other Gastrointestinal: no symptoms reported, see HPI Genitourinary: no symptoms reported, see HPI Musculoskeletal: see HPI, back pain, joint pain Skin: no symptoms reported, see HPI Psychiatric/Neurological: No Symptoms Reported, See HPI Reviewed Test Results Reviewed Test Results Lab Laboratory Tests Test 04/07/20 23:25 04/08/20 00:08 04/08/20 03:07 Range/Units Troponin I < 0.028 <0.028 NG/ML Glucometer 233 H 70-110 MG/DL White Blood Count 10.8 4.3-11.0 10^3/uL Red Blood Count 4.71 4.35-5.85 10^6/uL Hemoglobin 14.4 11.5-16.0 G/DL Hematocrit 42 35-52 % Mean Corpuscular Volume 90 80-99 FL Mean Corpuscular Hemoglobin 31 25-34 PG Mean Corpuscular Hemoglobin Concent 34 32-36 G/DL Red Cell Distribution Width 13.6 10.0-14.5 % Platelet Count 192 130-400 10^3/uL Mean Platelet Volume 11.7 H 7.4-10.4 FL Neutrophils (%) (Auto) 54 42-75 % Lymphocytes (%) (Auto) 38 12-44 % Monocytes (%) (Auto) 7 0-12 % Eosinophils (%) (Auto) 1 0-10 % Basophils (%) (Auto) 0 0-10 % Neutrophils # (Auto) 5.8 1.8-7.8 X 10^3 Lymphocytes # (Auto) 4.2 H 1.0-4.0 X 10^3 Monocytes # (Auto) 0.8 0.0-1.0 X 10^3 Eosinophils # (Auto) 0.1 0.0-0.3 10^3/uL Basophils # (Auto) 0.0 0.0-0.1 10^3/uL Sodium Level 137 135-145 MMOL/L Potassium Level 3.8 3.6-5.0 MMOL/L Chloride Level 101 98-107 MMOL/L Carbon Dioxide Level 23 21-32 MMOL/L Anion Gap 13 5-14 MMOL/L Blood Urea Nitrogen 16 7-18 MG/DL Creatinine 0.86 0.60-1.30 MG/DL Estimat Glomerular Filtration Rate > 60 BUN/Creatinine Ratio 19 Glucose Level 301 H 70-105 MG/DL Calcium Level 9.4 8.5-10.1 MG/DL Phosphorus Level 4.3 2.3-4.7 MG/DL Magnesium Level 1.8 1.6-2.4 MG/DL Physical Exam Physical Exam Vital Signs Vital Signs - First Documented 04/07/20 04/07/20 23:15 23:55 Temp 36.0 Pulse 73 Resp 12 B/P (MAP) 157/73 (101) Pulse Ox 96 O2 Delivery Room Air O2 Flow Rate 2.00 Capillary Refill : Less Than 3 Seconds Height, Weight, BMI Height: 5'4.00" Weight: 240lbs. oz. 108.157327bc; 44.19 BMI Method:Stated General Appearance: No Apparent Distress, WD/WN Eyes: Bilateral Eye Normal Inspection, Bilateral Eye PERRL, Bilateral Eye EOMI HEENT: PERRL/EOMI, TMs Normal, Normal ENT Inspection, Pharynx Normal, Moist Mucous Membranes Neck: Full Range of Motion, Normal Inspection, Non Tender, Supple, Carotid Bruit Respiratory: Chest Non Tender, Normal Breath Sounds, No Accessory Muscle Use, No Respiratory Distress Cardiovascular: Regular Rate, Rhythm, No Edema, No Gallop, No JVD, Normal Peripheral Pulses, Systolic Murmur Gastrointestinal: Normal Bowel Sounds, No Organomegaly, No Pulsatile Mass, Non Tender, Soft Back: Normal Inspection, No CVA Tenderness, No Vertebral Tenderness Extremity: Normal Capillary Refill, Normal Inspection, Normal Range of Motion, Non Tender, No Calf Tenderness, No Pedal Edema Neurologic/Psychiatric: Alert, Oriented x3, No Motor/Sensory Deficits, Normal Mood/Affect Skin: Normal Color, Warm/Dry Lymphatic: No Adenopathy A/P-Cardiology Admission Diagnosis Unstable angina Coronary artery disease Hypertension Hyperlipidemia Assessment/Plan Chest pain resembling angina, unstable angina, cardiac enzymes are negative. EKG did not show acute changes. Currently feeling better. Has extensive history, planning to evaluate stress test today. Coronary artery disease, history of CABG time one done in 2006 after having myocardial infarction. No recent follow-up or workup was done. I will evaluate echocardiogram. Planning to evaluate stress test as described above Questionable history of left subclavian artery stenosis, reporting having a stent done in 2009 to her left arm. No records unavailable Hypertension, monitor blood pressure and restart medication Hyperlipidemia, evaluate lipid profile. Restart medication Diabetes mellitus, poorly controlled, managed by primary care team Tobaccoism, educated on smoking cessation Clinical Quality Measures DVT/VTE Risk/Contraindication: Risk Factor Score Per Nursin RFS Level Per Nursing on Admit: 4+=Very High ARIEL LEYVA MD Apr 08, 2020 10:04
[2020-04-08 10:21] LABS: TRIGLYCERIDES 195 MG/DL (<150); VLDL CHOLESTEROL 39 MG/DL (5-40)
[2020-04-08 10:26] LABS: CHOLESTEROL 178 MG/DL (< 200)
[2020-04-08 10:27] LABS: HDL CHOLESTEROL 55 MG/DL (40-60)
[2020-04-08] MEDS ORDERED: LISI-552 PO (11:10)
[2020-04-08] MEDS ORDERED: NF-SOLIF5T PO (11:10)
[2020-04-08] MEDS ORDERED: ACET-2267 PO (11:10)
[2020-04-08] MEDS ORDERED: AMLO5TAB9 PO (11:10)
[2020-04-08] MEDS ORDERED: CRV25T PO (11:10)
[2020-04-08] MEDS ORDERED: ISM60TCR PO (11:10)
[2020-04-08] MEDS ORDERED: INSU100I29 SQ (11:10)
[2020-04-08] MEDS ORDERED: ROSU5TAB13 PO (11:10)
[2020-04-08] MEDS ORDERED: IBUP-2185 PO (11:11)
--- NOTE | 2020-04-08 11:13 | NUR ---
SPOKE WITH THE PT AND CALLED [facility] TO COMPLETE THE MED REC THE PT NAMED OFF ALL HER MEDICATIONS AND HOW SHE TAKES THEM THE FOLLOWING MEDICATIONS WERE FILLED ON 02-23-2020 ROSUVASTATIN 5MG #90/90DS AMLODIPINE 5MG #90/90DS LISINOPRIL 20MG #90/90DS ISOSORBIDE MONO ER 60MG #90/90DS VESICARE 5MG #90/90DS LEVEMIR FLEX PEN #5 PENS/30DS COREG 25MG WAS LAST FILLED 06-12-2019 #60/30DS- I DID DOCUMENT THE PAST DUE FILL ON THE MED REC PT ALSO SAYS SHE TAKES PROTONIX AND AN ANTIANXIETY MED BUT [facility] DID NOT HAVE A RECORD OF EITHER OF THESE MEDICATIONS AND THE REPOSITORY DID NOT SHOW THEM EITHER OTC MEDS: TYLENOL IBUPROFEN
[2020-04-08] MEDS ORDERED: RT-ALBUTEROL/IPRATROPIUM 3 ML (DUONEB) VIAL INH SCH (12:00)
[2020-04-08] MEDS: RT-ALBUTEROL/IPRATROPIUM 3 ML (DUONEB) VIAL INH SCH ×2 (13:34→21:10)
--- NOTE | 2020-04-08 14:01 | Cardiology Stress Test Report ---
Stress Test Report Date of Procedure/Referring: Date of Procedure: Apr 08, 2020 PCP Blessing Turcios DO Admitting Physician [place]/Pending Sale To [facility] Indications: Chest pain, coronary artery disease Baseline Heart Rate: 71 Baseline Blood Pressure: Blood Pressure Systolic: 141 Blood Pressure Diastolic: 84 Baseline EKG: Baseline EKG: normal sinus rhythm Summary: Patient received 0.4 mg Lexiscan for stress test, ECG, heart rate and blood pressure were monitored continuously. Resting and stress dose of radio tracer were injected, imaging was acquired and reviewed in short axis, horizontal long axis and vertical long axis views. Conclusion: 1. Patient tolerated Lexiscan well 2. Mild decrease uptake at the mid to apical anterior wall true apex with mild reversibility, SSS 11, SDS 3 3. Normal left ventricular size with mild hypokinesia at the anterior wall, Ejection fraction 56 percent ARIEL LEYVA MD Apr 08, 2020 2:01 pm
[2020-04-08 14:18] LABS: INR 0.9 (0.8-1.4); PROTHROMBIN TIME PATIENT 12.5 SEC (12.2-14.7)
[2020-04-08] MEDS ORDERED: NS IV 1000 ML 1,000 ML ONE (15:15)
[2020-04-08] MEDS ORDERED: HEParin (CATH LAB) 2,000 ML IV ONE (15:15)
[2020-04-08] MEDS ORDERED: LIDOCAINE 1% INJ 20 ML 20 ML VIAL ONE (15:15)
[2020-04-08] MEDS ORDERED: fentaNYL INJECTION 100 MCG/2 ML AMP ONE (15:15)
[2020-04-08] MEDS ORDERED: MIDAZOLAM 5 MG/5 ML (VERSED) VIAL ONE (15:15)
[2020-04-08] MEDS: NS IV 1000 ML 1,000 ML IV SCH ×3 (15:21→16:42)
--- NOTE | 2020-04-08 16:02 | Cardiac Procedure Note-CS/ASA ---
Pre-Procedure Note Pre-Op Procedure Note H&P Reviewed The H&P was reviewed, patient examined and no changes noted. Date H&P Reviewed: Apr 08, 2020 Time H&P Reviewed: 16:02 Conscious Sedation Pre-Proced Time 16:02 ASA Score 3 For ASA 3 and 4: Consider anesthesia and medical clearance. Also, for patients with a history of failed moderate sedation consider anesthesia. Airway Lungs Heart ASA score ASA 1: a normal healthy patient ASA 2: a patient with a mild systemic disease (mid diabetes, controlled hypertension, obesity x ASA 3: a patient with a severe systemic disease that limits activity (angina, COPD, prior Myocardial infarction) ASA 4: a patient with an incapacitating disease that is a constant threat to life (CHF, renal failure) ASA 5: a moribund patient not expected to survive 24 hrs. (ruptured aneurysm) ASA 6: a declared brain- patient whose organs are being harvested. For emergent operations, add the letter E after the classification Mallampati Classification Grade 3 Sedation Plan Analgesia, Amnesia, Plan communicated to team members, Discussed options with patient/fam, Discussed risks with patient/fam The patient is an appropriate candidate to undergo the planned procedure, sedation, and anesthesia. The patient immediately re-assessed prior to indication. ARIEL LEVYA MD Apr 08, 2020 16:02
[2020-04-08] MEDS ORDERED: HEParin 1000 UNIT/ML (10ML VIAL) FOR BOLUS ONE (16:09)
[2020-04-08] MEDS ORDERED: NITRO DRIP 25000 MCG/D5W 250 ML IV ONE (16:22)
[2020-04-08] MEDS ORDERED: ASPIRIN 325 MG (5 GR) TABLET ONE (16:39)
[2020-04-08] MEDS ORDERED: CLOPIDOGREL 300 MG (PLAVIX) TABLET PO ONE (16:40)
[2020-04-08] MEDS ORDERED: PATIENT MAY USE OWN MEDS, ALL PO SCH (16:45)
--- NOTE | 2020-04-08 16:51 | Cardiac Cath Report ---
Cardiac Cath Report Physician (s)/Ink Jet Operator (s) Physician ARIEL LEYVA MD Pre-Procedure Diagnosis Pre-Procedure Diagnosis: Coronary artery disease Post-Procedure Note Procedure Start Date: Apr 08, 2020 Name of Procedure: Left heart catheterization FOSTER angiogram Left subclavian angiogram FFR to the RCA Stent to the RCA using HEIDY Findings/Procedure Note PROCEDURE NOTE: 55-year-old lady with history of coronary artery disease, had history of FOSTER to the LAD over 10 years ago, reporting stent to her left arm, admitted with unstable angina and had an abnormal stress test with ischemia at the apex and anteroapical area. Decided to proceed with cardiac catheterization possible PTCA. After explaining the procedure to the patient, all pros and cons were explained, all questions were answered. The patient signed the consent and then she was placed on the cardiac catheterization laboratory. Groin was prepped SL fashion local anesthesia was used. Sheath placed in the artery. Farhan right and left catheter were used to access the coronary system. Pigtail was used to access the left ventricular cavity. I noted the stent in the left subclavian artery, I was able to engage the left subclavian artery with the JR catheter and perform angiogram to the left subclavian artery the stent was patent, I advanced a stork wire to the left subclavian artery and advanced the catheter then was able to do angiogram to the left internal mammary artery. Left ventriculogram was not done, pressure was measured X Patient was given 3000 units of heparin followed by 2000 units of heparin I used JR4 guide advanced it to the right coronary artery there was a proximal lesion that appeared severe. Significant drop in the pressure with engagement of the right coronary artery. I advanced FFR wire and disengaged from the artery and the baseline FFR was 0.80. Subsequently I decided to proceed with percutaneous intervention. I used Tessa drug-eluting 2.5 x 18 mm stent expanded to 3.1 mm p roximally and 2.8 mm distally, angiogram showed excellent result and engagement of the guide in the right coronary artery did not cause any more drop in the pressure. At the end of the procedure the sheath was removed. Closure device was used FINDINGS: Hemodynamics LV 141/8, end-diastolic pressure of 8 Aorta 138/66 mean of 94 ANATOMY: Left Main has moderate stenosis fairly small artery Left Anterior Descending is small artery with patent FOSTER to the LAD and competitive flow through both arteries Left Circumflex is very small artery with moderate disease. Right Coronory Artery is dominant artery with severe stenosis proximally, FFR was significant at baseline, successful stenting using Tessa 2.5 x 18 mm expanded to 3.1 mm proximally and 2.8 mm distally with excellent results LV Gram was not done, pressure was measured Left subclavian angiogram showed patent stents in the left subclavian artery with no significant obstructive disease FOSTER angiogram showed very small FOSTER with patent and competitive flow through the [place] artery. No obstructive disease CONCLUSION: 1. Severe stenosis in a dominant right coronary artery proximally, not bypassed, successful stenting using Tessa drug-eluting stent 2.5 x 18 mm expanded to 3.1 mm proximally and 2.8 mm distally with excellent results. 2. Very small left coronary system with stenosis in the LAD, patent FOSTER to LAD with competitive flow 3. Very small circumflex artery with moderate stenosis 4. Patent stent in the left subclavian artery with no significant obstructive disease 5. Normal left ventricular end-diastolic pressure DISCUSSION AND RECOMMENDATION: Start patient on aspirin and Plavix, maximize medical therapy and monitor Anesthesia Type: Conscious Sedation Estimated blood loss (mL): 35 ml Contrast Amount: 123 ml Total Radiation Dose: 1129 mGy Post-Procedure Diagnosis Post-operative diagnosis: Unstable angina Coronary artery disease Hypertension Hyperlipidemia ARIEL LEYVA MD Apr 08, 2020 16:51
[2020-04-08] MEDS: CARVEDILOL 12.5 MG (COREG) TABLET PO SCH (20:50)
[2020-04-08] MEDS ORDERED: ROSUVASTATIN 10 MG (CRESTOR) TABLET PO SCH (21:00)
[2020-04-08] MEDS ORDERED: NON-FORMULARY MEDICATION 1 EA EA (Carvedilol (Coreg) 25 MG) PO SCH (21:00)
[2020-04-08] MEDS ORDERED: INSULIN DETEMIR 45 UNIT SQ SCH (21:00)
[2020-04-09] MEDS: NS IV 1000 ML 1,000 ML IV SCH ×3 (00:09→09:53)
[2020-04-09] MEDS: ENOXAPARIN 40 MG/0.4 ML (LOVENOX) SYR SC SCH (00:09)
[2020-04-09] MEDS: RT-ALBUTEROL/IPRATROPIUM 3 ML (DUONEB) VIAL INH SCH ×2 (02:14→10:03)
[2020-04-09 04:00] VITALS: BP 147/88
[2020-04-09 04:24] LABS: BASOPHILS % (AUTO) 0 % (0-10); EOSINOPHILS # (AUTO) 0.1 10^3/uL (0.0-0.3); EOSINOPHILS % (AUTO) 1 % (0-10); HEMATOCRIT 41 % (35-52); HEMOGLOBIN 13.6 G/DL (11.5-16.0); LYMPHOCYTES # (AUTO) 2.8 X 10^3 (1.0-4.0); LYMPHOCYTES % (AUTO) 28 % (12-44); MEAN CORPUSCULAR HEMOGLOBIN 31 PG (25-34); MEAN CORPUSCULAR HGB CONC 34 G/DL (32-36); MEAN CORPUSCULAR VOLUME 91 FL (80-99); MEAN PLATELET VOLUME 11.3 FL (7.4-10.4); MONOCYTES # (AUTO) 0.6 X 10^3 (0.0-1.0); MONOCYTES % (AUTO) 6 % (0-12); NEUTROPHILS # (AUTO) 6.4 X 10^3 (1.8-7.8); NEUTROPHILS % (AUTO) 65 % (42-75); PLATELET COUNT 176 10^3/uL (130-400); RED CELL DISTRIBUTION WIDTH 13.4 % (10.0-14.5); WHITE BLOOD COUNT 9.9 10^3/uL (4.3-11.0)
[2020-04-09 04:39] LABS: CHLORIDE 103 MMOL/L (98-107); POTASSIUM 3.8 MMOL/L (3.6-5.0); SODIUM 136 MMOL/L (135-145)
[2020-04-09 04:40] LABS: CALCIUM 8.8 MG/DL (8.5-10.1)
[2020-04-09 04:41] LABS: GLUCOSE 287 MG/DL (70-105)
[2020-04-09 04:42] LABS: CARBON DIOXIDE 21 MMOL/L (21-32)
[2020-04-09 04:44] LABS: PHOSPHORUS 4.1 MG/DL (2.3-4.7)
[2020-04-09 04:45] LABS: BUN/CREATININE RATIO 18; CREATININE SERUM 0.77 MG/DL (0.60-1.30); GFR ESTIMATED > 60
[2020-04-09 04:47] LABS: MAGNESIUM 1.6 MG/DL (1.6-2.4)
--- NOTE | 2020-04-09 05:47 | Pulmonary Progress Note ---
Subjective Time Seen by a Provider: 05:47 Subjective/Events-last exam No complications noted. Sepsis Event Evaluation Height, Weight, BMI Height: 5'4.00" Weight: 240lbs. oz. 108.991311lw; 44.19 BMI Method:Stated Exam Exam Vital Signs Date Time Temp Pulse Resp B/P (MAP) Pulse Ox O2 Delivery O2 Flow Rate FiO2 04/09/20 04:00 36.2 71 147/88 (107) 96 Nasal Cannula 1.00 04/09/20 02:13 96 Room Air 04/09/20 01:00 73 04/08/20 23:59 36.0 81 12 150/69 (96) 91 Nasal Cannula 1.00 04/08/20 22:05 83 15 136/75 (95) 95 Room Air 04/08/20 21:10 95 Room Air 04/08/20 21:05 36.3 93 18 122/75 (91) 97 Room Air 04/08/20 21:00 95 Room Air 04/08/20 19:07 82 18 128/84 (99) 96 Room Air 04/08/20 19:00 85 04/08/20 18:37 79 18 146/86 (106) 93 Room Air 04/08/20 18:07 80 18 138/84 (102) 91 Room Air 04/08/20 17:52 77 18 140/87 (104) 90 Room Air 04/08/20 17:37 81 18 130/87 (101) 90 Room Air 04/08/20 17:22 36.5 78 18 131/88 (102) 92 04/08/20 17:15 82 14 148/88 (108) 93 Room Air 04/08/20 13:35 92 Room Air 04/08/20 13:00 67 04/08/20 09:00 79 13 141/84 (103) 95 Nasal Cannula 2.00 04/08/20 08:00 36.2 04/08/20 08:00 96 Nasal Cannula 2.00 04/08/20 08:00 81 15 144/99 (114) 97 Nasal Cannula 2.00 04/08/20 07:00 71 04/08/20 07:00 71 30 165/95 (118) 94 Nasal Cannula 2.00 04/08/20 06:00 71 19 153/99 (117) 94 Nasal Cannula 2.00 I & O 04/09/20 07:00 Intake Total 675 ml Balance 675 ml Height & Weight Height: 5'4.00" Weight: 240lbs. oz. 108.242533zx; 44.19 BMI Method:Stated General Appearance: No Apparent Distress, Chronically ill, Obese HEENT: PERRL/EOMI, Normal ENT Inspection, Pharynx Normal, Moist Mucous Membranes Neck: Full Range of Motion, Normal Inspection, Non Tender Respiratory: Chest Non Tender, Lungs Clear, Normal Breath Sounds, No Accessory Muscle Use, No Respiratory Distress Cardiovascular: Regular Rate, Rhythm, No Edema, No Gallop, No JVD, No Murmur, Normal Peripheral Pulses Capillary Refill: Less Than 3 Seconds Extremity: Normal Capillary Refill, Normal Inspection, Normal Range of Motion, Non Tender, No Calf Tenderness, No Pedal Edema Neurologic/Psychiatric: Alert, Oriented x3, No Motor/Sensory Deficits, Normal Mood/Affect Skin: Normal Color, Warm/Dry Lymphatic: No Adenopathy Results Lab Laboratory Tests 04/08/20 03:07 04/09/20 04:07 Assessment/Plan Assessment/Plan Acute SOB with CP r/o [place] -Cardiology consulted -troponin neg x 2 Tobacco dependance -Does not use home oxygen -Start Duoneb Q 6 hx of CABG/CAD JM DRUMMOND DO Apr 09, 2020 05:47
[2020-04-09] MEDS ORDERED: TROSPIUM 20 MG (SANCTURA) TAB PO SCH ×2 (06:00→16:00)
--- NOTE | 2020-04-09 07:47 | Diagnostic Imaging Report ---
CHEST 1 VIEW, AP/PA ONLY Indication: Dyspnea Comparison: 04/08/2020 Findings: Stable cardiomegaly with changes of CABG. Bibasilar hazy opacities have mildly worsened. No pneumothorax or pleural effusion. Impression: 1. Mild worsening of basilar opacities which are likely due to summation shadow and subsegmental atelectasis. Dictated by: Dictated on workstation # [id number]
[2020-04-09 08:00] VITALS: BP 119/79
--- NOTE | 2020-04-09 08:55 | Cardiology Progress Note ---
Subjective Date Seen by Provider: Apr 09, 2020 Time Seen by Provider: 08:53 Subjective/Events-last exam Patient is laying down in bed, sleepy, feeling better, groin is healing well Review of Systems General: No Chills, No Night Sweats, No Fatigue, No Malaise, No Appetite, No Other HEENT: No Head Aches, No Visual Changes, No Eye Pain, No Ear Pain, No Dysphasia, No Sinus Congestion, No Post Nasal Drip, No Sore Throat, No Other Pulmonary: No Dyspnea, No Cough, No Pleuritic Chest Pain, No Other Cardiovascular: No: Chest Pain, Palpitations, Orthopnea, Paroxysmal Noc. Dyspnea, Edema, Lt Headedness, Other Objective-Cardiology Exam Last Set of Vital Signs Vital Signs 04/09/20 04/09/20 04:00 08:00 Temp 35.9 Pulse 75 Resp 17 B/P (MAP) 119/79 (92) Pulse Ox 96 O2 Delivery Room Air O2 Flow Rate 1.00 Capillary Refill : Less Than 3 Seconds I&O Intake and Output 04/09/20 00:00 Intake Total 1125 ml Output Total 200 ml Balance 925 ml Intake Oral 1125 ml Output Urine Total 200 ml # Voids 4 General: Alert, Oriented X3, Cooperative HEENT: Atraumatic, PERRLA Neck: Supple, No JVD, No Thyromegaly Lungs: Clear to Auscultation, Normal Air Movement Heart: Regular Rate, Normal S1, Normal S2, No Murmurs Abdomen: Normal Bowel Sounds, Soft, No Tenderness, No Hepatosplenomegaly, No Masses Extremities: No Clubbing, No Cyanosis, No Edema, Normal Pulses, No Tenderness/Swelling Skin: No Rashes, No Breakdown, No Significant Lesion Neuro: Normal Gait, Normal Speech, Strength at 5/5 X4 Ext, Normal Tone, Sensation Intact Psych/Mental Status: Mental Status NL, Mood NL Results Lab Laboratory Tests 04/09/20 04:07 A/P-Cardiology Admission Diagnosis Unstable angina Coronary artery disease Hypertension Hyperlipidemia Assessment/Plan Chest pain, unstable angina, resolved after intervention. Doing well. Continue to monitor Coronary artery disease, history of CABG time one done in 2006 after having myocardial infarction. Cardiac catheterization showed patent FOSTER to LAD, small left coronary system, moderate disease in the circumflex artery, severe disease in the proximal right coronary artery, status post stenting using Tessa 2.5 x 18 mm expanded to 3.1 mm maximally and 2.8 mm distally with excellent results. Continue on aspirin and Plavix History of left subclavian artery stenosis done in 2009, angiogram to the left subclavian artery showed patent stent with no obstructive disease. Hypertension, restart home medication as an outpatient. Hyperlipidemia, monitor lipids. Diabetes mellitus, poorly controlled, managed by primary care team Tobaccoism, educated on smoking cessation Clinical Quality Measures DVT/VTE Risk/Contraindication: Risk Factor Score Per Nursin RFS Level Per Nursing on Admit: 4+=Very High ARIEL LEYVA MD Apr 09, 2020 08:55
[2020-04-09] MEDS ORDERED: PANT40SU PO (08:58)
[2020-04-09] MEDS ORDERED: ASPI-983 PO (08:58)
[2020-04-09] MEDS ORDERED: ROSU10TA28 PO (08:58)
[2020-04-09] MEDS ORDERED: CLOP75TA28 PO (08:58)
--- NOTE | 2020-04-09 08:59 | Discharge Inst-Post CATH ---
Discharge Inst-CATH/EP Problems Reviewed?: Yes Post Cardiac Cath/EP D/C Inst Follow Up/Plan Appointment with Dr. LEYVA's office in 2-4 weeks <b>CARDIAC CATH/EP PROCEDURE DISCHARGE INSTRUCTIONS</b> ACTIVITY * Go Home directly and rest. * Limit activity of the leg (or wrist if it was used) for 7 days including aerobics, swimming, jogging, bicycling, etc. * Restrict stair-climbing for 7 days if possible, if not, climb up with your non-cath leg, then bring together on the same step. * Avoid lifting, pushing, pulling or excessive movement of the affected extremity for 7 days. * Customary sexual activity may be resumed after 2 days-use caution not to use a position that strains or causes pain to the affected extremity. * No driving for 24 hours. * NO SMOKING. * Avoid straining for bowel movements for 7 days. * Gentle walking on level ground is allowed. * Returning to work will depend on the type of procedure and the results. Your doctor will discuss this with you. CALL YOUR DOCTOR FOR ANY OF THE FOLLOWING: *If bleeding from the puncture site occurs- Apply gentle pressure to site with clean cloth and call your doctor or EMS. * If a knot or lump forms under the skin, increases in size, or causes pain. * If bruising appears to be worsening or moving further down your leg instead of disappearing. * Temperature above 101 F. CARE OF YOUR GROIN INCISION; * Bruising or purple discoloration of the skin near the puncture site is common. * You may shower only, no bathtub bathing for 5 days. Be careful to avoid slipping as your leg may feel stiff. * If a closure device was used on your femoral artery, please see the attached guide regarding care of the device and your leg. * Leave dressing on FOR 24 hours. CARE OF YOUR WRIST INCISION; * Bruising or purple discoloration of the skin near the puncture site is common. * You may shower. * DO NOT submerge wrist. * Leave dressing on FOR 24 hours. ARIEL LEYVA MD Apr 09, 2020 08:59
[2020-04-09] MEDS ORDERED: CLOPIDOGREL 75 MG (PLAVIX) TABLET PO SCH (09:00)
[2020-04-09] MEDS ORDERED: lisINopril 20 MG (PRINIVIL) TABLET PO SCH (09:00)
[2020-04-09] MEDS ORDERED: SOLIFENACIN 5 MG TAB (VESICARE) NON-FORMULARY PO SCH (09:00)
[2020-04-09] MEDS ORDERED: amLODIPine 5 MG (NORVASC) TAB PO SCH (09:00)
[2020-04-09] MEDS ORDERED: ISOSORBIDE MONONITRATE 60 MG (IMDUR) TAB PO SCH (09:00)
[2020-04-09] MEDS ORDERED: ASPIRIN E.C. 81 MG (ECOTRIN) TAB PO SCH (09:00)
[2020-04-09] MEDS: POTASSIUM CL 10MEQ/50ML IVPB 50 ML IV SCH (09:08)
[2020-04-09] MEDS: MAGNESIUM 1 GM/100 ML IVPB 100 ML IV SCH (09:08)
[2020-04-09] MEDS: KCL 20 MEQ TAB (K-DUR) PO SCH (09:09)
[2020-04-09] MEDS: ACETAMINOPHEN 325 MG TABLET PO PRN (09:49)
[2020-04-09] MEDS: CARVEDILOL 12.5 MG (COREG) TABLET PO SCH (09:50)
--- NOTE | 2020-04-09 10:29 | Discharge Summary ---
Discharge Summary Hospital Course Was the Problem List Reviewed?: Yes Problems/Dx: (1) Chest pain (2) Hypertensive urgency (3) CAD (coronary artery disease) (4) Hx of CABG (5) Smoker (6) GERD (gastroesophageal reflux disease) (7) Diabetes mellitus Hospital Course Date of Admission: April 07, 2020 at 23:15 Admission Diagnosis : Family Physician/Provider: Christina Jain Aprn Date of Discharge: 04/09/20 Discharge Diagnosis: Unstable angina, s/p stent placement, smoking, HTN, DM Hospital Course: Hospital course: Pt had an uneventful hospital course, she was admitted for chest pain, history of CAD, previous bypass surgery and stents, continues to smoke, stress test was abnormal, cardiac cath performed, intervention of the right coronary artery with good results. Pt was discharged on appropriate cardiac meds and smoking cessation counseled. Labs and Pending Lab Test: Laboratory Tests 04/08/20 10:53: Glucometer 264H 04/08/20 13:59: Prothrombin Time 12.5, INR Comment 0.9, Activated Partial Thromboplast Time 26 04/08/20 17:13: Glucometer 186H 04/08/20 20:44: Glucometer 303H 04/09/20 04:07: White Blood Count 9.9, Red Blood Count 4.45, Hemoglobin 13.6, Hematocrit 41, Mean Corpuscular Volume 91, Mean Corpuscular Hemoglobin 31, Mean Corpuscular Hemoglobin Concent 34, Red Cell Distribution Width 13.4, Platelet Count 176, Mean Platelet Volume 11.3H, Neutrophils (%) (Auto) 65, Lymphocytes (%) (Auto) 28 , Monocytes (%) (Auto) 6, Eosinophils (%) (Auto) 1, Basophils (%) (Auto) 0, Neutrophils # (Auto) 6.4, Lymphocytes # (Auto) 2.8, Monocytes # (Auto) 0.6, Eosinophils # (Auto) 0.1, Basophils # (Auto) 0.0, Sodium Level 136, Potassium Level 3.8, Chloride Level 103, Carbon Dioxide Level 21, Anion Gap 12, Blood Urea Nitrogen 14, Creatinine 0.77, Estimat Glomerular Filtration Rate > 60, BU N/Creatinine Ratio 18, Glucose Level 287H, Calcium Level 8.8, Phosphorus Level 4.1, Magnesium Level 1.6 04/09/20 05:40: Glucometer 241H Microbiology 5/31/20 MRSA Screen - Final, Complete MRSA not isolated Home Meds Active Protonix (Pantoprazole Sodium) 40 Mg Granpkt.dr 40 Mg PO DAILY Aspirin EC (Aspirin) 81 Mg Tablet.dr 81 Mg PO DAILY Rosuvastatin Calcium 10 Mg Tablet 10 Mg PO HS Clopidogrel (Clopidogrel Bisulfate) 75 Mg Tablet 75 Mg PO DAILY Reported Ibuprofen 200 Mg Capsule 400 Mg PO Q8H PRN Tylenol Extra Strength (Acetaminophen) 500 Mg Tablet 1,000 Mg PO Q8H PRN Levemir Flextouch (Insulin Detemir) 100 Unit/1 Ml Insuln.pen 45 Unit SQ HS Coreg (Carvedilol) 25 Mg Tab 25 Mg PO BID LAST FILLED 06-12-2019 #60/30DS Vesicare (Solifenacin Succinate) 5 Mg Tablet 5 Mg PO DAILY Isosorbide Mononitrate ER (Isosorbide Mononitrate) 60 Mg Tab 60 Mg PO DAILY Lisinopril 20 Mg Tablet 20 Mg PO DAILY Amlodipine Besylate 5 Mg Tablet 5 Mg PO DAILY Assessment/Pt Instructions [facility] 1 week Discharge Planning: <30 minutes discharge planning Discharge Instructions Discharge Diet: ADA Diet, Cardiac Diet Pneumonia Vaccine Order Indica: Yes Discharge Physical Examination Vital Signs Vital Signs Date Time Temp Pulse Resp B/P (MAP) Pulse Ox O2 Delivery O2 Flow Rate FiO2 04/09/20 10:03 95 Room Air 04/09/20 08:00 35.9 75 17 119/79 (92) 04/09/20 04:00 1.00 General Appearance: No Apparent Distress, WD/WN, Chronically ill Allergies: Coded Allergies: cephalexin (Verified Allergy, Unknown, vomiting, 03/09/19) Uncoded Allergies: PAPER TAPE (Allergy, Unknown, 03/09/19) Discharge Summary Date of Admission April 07, 2020 at 23:15 Date of Discharge Discharge Date: Apr 09, 2020 Admission Diagnosis Assessment: Unstable angina Hypertensive urgency in [facility] Smoker CAD previous CABG DM GERD Obesity Plan: EST Cath? Home meds O2 Discharge Diagnosis (1) Chest pain (2) Hypertensive urgency (3) CAD (coronary artery disease) (4) Hx of CABG (5) Smoker (6) GERD (gastroesophageal reflux disease) (7) Diabetes mellitus Clinical Quality Measures DVT/VTE Risk/Contraindication: Risk Factor Score Per Nursin RFS Level Per Nursing on Admit: 4+=Very High SUTHERLAND,MENG DO Apr 09, 2020 10:29
[2020-04-09] MEDS ORDERED: inSUlin ASPART (NovoLOG) 1 UNIT/0.01 ML (CHARGE PER UNIT) SC ONE (11:30)
[2020-04-09] MEDS ORDERED: ENOXAPARIN 40 MG/0.4 ML (LOVENOX) SYR SC SCH (12:00)
--- OUTSIDE RECORDS SUMMARY | 2020-04-24 16:43 | XMS REPORT | Continuity of Care Document ---
Author Organization Unknown Address Unknown Phone Unavailable Allergies Active Description Code Type Severity Reaction Onset Reported/Identified Relationship to Patient Clinical Status Yes KEFLEX UNKNOWN UNKNOWN Yes PAPER TAPE UNKNOWN UNKNOWN Yes cephalexin [id number] Drug Allerg y Unknown vomiting 03/09/2019 Yes PAPER TAPE PAPER TAPE Unknown N/A 03/09/2019 Medications Medication Packaging Start Date St op Date Route Dosage Sig NITROSTAT TAB 0.4 MG (NITROQUICK) MG 04/07/2020 04/07/2020 ONCE&2021 Problems Date Dx Coded Attending Type Code Diagnosis Diagnosed By 03/09/2019 BLANCA GOINS DO, Ot I10 ESSENTIAL (PRIMARY) HYPERTENSION 03/09/2019 BLANCA GOINS DO Ot J32.0 CHRONIC MAXILLARY SINUSITIS 03/09/2019 BLANCA GOINS DO Ot R51 HEADACHE 03/09/2019 BLANCA GOINS DO Ot Z88.1 ALLERGY STATUS TO OTHER ANTIBIOTIC AGENT 03/09/2019 BLANCA GOINS DO Ot Z91.048 OTHER NONMEDICINAL SUBSTANCE ALLERGY STA 2019 BLANCA GOINS DO, Ot I10 ESSENTIAL (PRIMARY) HYPERTENSION 2019 BLANCA GOINS DO, Ot J32.0 CHRONIC MAXILLARY SINUSITIS 2019 BLANCA GOINS DO Ot R51 HEADACHE 2019 BLANCA GOINS DO, Ot Z88.1 ALLERGY STATUS TO OTHER ANTIBIOTIC AGENT 2019 BLANCA GOINS DO, Ot Z91.048 OTHER NONMEDICINAL SUBSTANCE ALLERGY STA 04/07/2020 Bridget Benitez 250.00 DIABETES MELLITUS WITHOUT MENTION OF COMPLICATION, TYPE II OR UNSPECIFIED TYPE, NOT STATED UNCONTROLLED 04/07/2020 Bridget Benitez 272.4 OTHER AND UNSPECIFIED HYPERLIPIDEMIA 04/07/2020 Bridget Beintez 401.0 MALIGNANT ESSENTIAL HYPERTENSION 04/07/2020 Bridget Benitez 411.1 INTERMEDIATE CORONARY SYNDROME 04/07/2020 Bridget Benitez 414.01 CORONARY ATHEROSCLEROSIS OF [place] CORONARY ARTERY 04/07/2020 Emmanuel, Bridget W E11.9 TYPE 2 DIABETES MELLITUS WITHOUT COMPLICATIONS 04/07/2020 Bridget Benitez W E78.5 HYPERLIPIDEMIA, UNSPECIFIED 04/07/2020 Bridget Benitez W I10 ESSENTIAL (PRIMARY) HYPERTENSION 04/07/2020 Bridget Benitez W I20.0 UNSTABLE ANGINA 04/07/2020 Bridget Benitez W 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 PCTRS 04/09/2020 SUTHERLAND DO, MENG Ot E11.9 TYPE 2 DIABETES MELLITUS WITHOUT COMPLIC 04/09/2020 SUTHERLAND DO, MENG Ot E78.5 HYPERLIPIDEMIA, UNSPECIFIED 04/09/2020 SUTHERLAND DO, MENG Ot F17.21 0 NICOTINE DEPENDENCE, CIGARETTES, UNCOMPL 04/09/2020 SUTHERLAND DO, MENG Ot F41.9 ANXIETY DISORDER, UNSPECIFIED 04/09/2020 SUTHERLAND DO, MENG Ot I10 ESSENTIAL (PRIMARY) HYPERTENSION 04/09/2020 ENA DO, MENG Ot I16.0 HYPERTENSIVE URGENCY 04/09/2020 ENA DO MENG Ot I21.9 ACUTE MYOCARDIAL INFARCTION, UNSPECIFIED 04/09/2020 ENA DO, MENG Ot I25.11 0 ATHSCL HEART DISEASE OF [place] COR ART W 04/09/2020 ENA DO, MENG Ot I77.1 STRICTURE OF ARTERY 04/09/2020 ENA DO MENG Ot K21.9 GASTRO-ESOPHAGEAL REFLUX DISEASE WITHOUT 04/09/2020 ENA DO, MENG Ot M19.90 UNSPECIFIED OSTEOARTHRITIS, UNSPECIFIED 04/09/2020 ENA REINA MENG Ot Z79.02 ANIMAL CARE ASSISTANT (CURRENT) USE OF ANTITHROMBOTI 04/09/2020 ENA REINA MENG Ot Z79.4 ANIMAL CARE ASSISTANT (CURRENT) USE OF INSULIN 04/09/2020 ENA REINA MENG Ot Z79.82 ANIMAL CARE ASSISTANT (CURRENT) USE OF ASPIRIN 04/09/2020 ENA REINA MENG Ot Z88.1 ALLERGY STATUS TO OTHER ANTIBIOTIC AGENT 04/09/2020 ENA REINA MENG Ot Z91.04 8 OTHER NONMEDICINAL SUBSTANCE ALLERGY STA 04/09/2020 ENA REINA MENG Ot Z95.1 PRESENCE OF AORTOCORONARY BYPASS GRAFT 04/24/2020 ENA REINA MENG Ot E11.9 TYPE 2 DIABETES MELLITUS WITHOUT COMPLIC 04/24/2020 SUTHERLAND DO, MENG Ot E78.5 HYPERLIPIDEMIA, UNSPECIFIED 04/24/2020 SUTHERLAND DO, MENG Ot F17.21 0 NICOTINE DEPENDENCE, CIGARETTES, UNCOMPL 04/24/2020 SUTHERLAND DO, MENG Ot F41.9 ANXIETY DISORDER, UNSPECIFIED 04/24/2020 SUTHERLAND DO, MENG Ot I10 ESSENTIAL (PRIMARY) HYPERTENSION 04/24/2020 SUTHERLAND DO, MENG Ot I16.0 HYPERTENSIVE URGENCY 04/24/2020 SUTHERLAND DO, MENG Ot I21.9 ACUTE MYOCARDIAL INFARCTION, UNSPECIFIED 04/24/2020 SUTHERLAND DO, MENG Ot I25.11 0 ATHSCL HEART DISEASE OF [place] COR ART W 04/24/2020 SUTHERLAND DO, MENG Ot I77.1 STRICTURE OF ARTERY 04/24/2020 SUTHERLAND DO, MENG Ot K21.9 GASTRO-ESOPHAGEAL REFLUX DISEASE WITHOUT 04/24/2020 SUTHERLAND DO, MENG Ot M19.90 UNSPECIFIED OSTEOARTHRITIS, UNSPECIFIED 04/24/2020 SUTHERLAND DO, MENG Ot Z79.02 RESIDENTIAL (CURRENT) USE OF ANTITHROMBOTI 04/24/2020 SUTHERLAND DO, MENG Ot Z79.4 ANIMAL CARE ASSISTANT (CURRENT) USE OF INSULIN 04/24/2020 SUTHERLAND DO, MENG Ot Z79.82 ANIMAL CARE ASSISTANT (CURRENT) USE OF ASPIRIN 04/24/2020 SUTHERLAND DO, MENG Ot Z88.1 ALLERGY STATUS TO OTHER ANTIBIOTIC AGENT 04/24/2020 SUTHERLAND DO, MENG Ot Z91.04 8 OTHER NONMEDICINAL SUBSTANCE ALLERGY STA 04/24/2020 SUTHERLAND DO, MENG Ot Z95.1 PRESENCE OF AORTOCORONARY BYPASS GRAFT 04/24/2020 SUTHERLAND DO, MENG Ot E11.9 TYPE 2 DIABETES MELLITUS WITHOUT COMPLIC 04/24/2020 SUTHERLAND DO, MENG Ot E78.5 HYPERLIPIDEMIA, UNSPECIFIED 04/24/2020 SUTHERLAND DO, MENG Ot F17.21 0 NICOTINE DEPENDENCE, CIGARETTES, UNCOMPL 04/24/2020 SUTHERLAND DO, MENG Ot F41.9 ANXIETY DISORDER, UNSPECIFIED 04/24/2020 SUTHERLAND DO, MENG Ot I10 ESSENTIAL (PRIMARY) HYPERTENSION 04/24/2020 SUTHERLAND DO, MENG Ot I16.0 HYPERTENSIVE URGENCY 04/24/2020 SUTHERLAND DO, MENG Ot I21.9 ACUTE MYOCARDIAL INFARCTION, UNSPECIFIED 04/24/2020 SUTHERLAND DO, MENG Ot I25.11 0 ATHSCL HEART DISEASE OF [place] COR ART W 04/24/2020 SUTHERLAND DO, MENG Ot I77.1 STRICTURE OF ARTERY 04/24/2020 SUTHERLAND DO, MENG Ot K21.9 GASTRO-ESOPHAGEAL REFLUX DISEASE WITHOUT 04/24/2020 SUTHERLAND DO, MENG Ot M19.90 UNSPECIFIED OSTEOARTHRITIS, UNSPECIFIED 04/24/2020 SUTHERLAND DO, MENG Ot Z79.02 RESIDENTIAL (CURRENT) USE OF ANTITHROMBOTI 04/24/2020 SUTHERLAND DO, MENG Ot Z79.4 RESIDENTIAL (CURRENT) USE OF INSULIN 04/24/2020 SUTHERLAND DO, MENG Ot Z79.82 RESIDENTIAL (CURRENT) USE OF ASPIRIN 04/24/2020 SUTHERLAND DO, MENG Ot Z88.1 ALLERGY STATUS TO OTHER ANTIBIOTIC AGENT 04/24/2020 SUTHERLAND DO, MENG Ot Z91.04 8 OTHER NONMEDICINAL SUBSTANCE ALLERGY STA 04/24/2020 SUTHERLAND DO, MENG Ot Z95.1 PRESENCE OF AORTOCORONARY BYPASS GRAFT 04/24/2020 SUTHERLAND DO, MENG Ot E11.9 TYPE 2 DIABETES MELLITUS WITHOUT COMPLIC 04/24/2020 SUTHERLAND DO, MENG Ot E78.5 HYPERLIPIDEMIA, UNSPECIFIED 04/24/2020 SUTHERLAND DO, MENG Ot F17.21 0 NICOTINE DEPENDENCE, CIGARETTES, UNCOMPL 04/24/2020 SUTHERLAND DO, MENG Ot F41.9 ANXIETY DISORDER, UNSPECIFIED 04/24/2020 SUTHERLAND DO, MENG Ot I10 ESSENTIAL (PRIMARY) HYPERTENSION 04/24/2020 SUTHERLAND DO, MENG Ot I16.0 HYPERTENSIVE URGENCY 04/24/2020 SUTHERLAND DO, MENG Ot I21.9 ACUTE MYOCARDIAL INFARCTION, UNSPECIFIED 04/24/2020 SUTHERLAND DO, MENG Ot I25.11 0 ATHSCL HEART DISEASE OF [place] COR ART W 04/24/2020 SUTHERLAND DO, MENG Ot I77.1 STRICTURE OF ARTERY 04/24/2020 SUTHERLAND DO, MENG Ot K21.9 GASTRO-ESOPHAGEAL REFLUX DISEASE WITHOUT 04/24/2020 SUTHERLAND DO, MENG Ot M19.90 UNSPECIFIED OSTEOARTHRITIS, UNSPECIFIED 04/24/2020 SUTHERLAND DO, MENG Ot Z79.02 RESIDENTIAL (CURRENT) USE OF ANTITHROMBOTI 04/24/2020 MENG SUTHERLAND DO Ot Z79.4 ANIMAL CARE ASSISTANT (CURRENT) USE OF INSULIN 04/24/2020 MENG SUTHERLAND DO Ot Z79.82 RESIDENTIAL (CURRENT) USE OF ASPIRIN 04/24/2020 MENG SUTHERLAND DO Ot Z88.1 ALLERGY STATUS TO OTHER ANTIBIOTIC AGENT 04/24/2020 MENG SUTHERLAND DO Ot Z91.04 8 OTHER NONMEDICINAL SUBSTANCE ALLERGY STA 04/24/2020 MENG SUTHERLAND DO Ot Z95.1 PRESENCE OF AORTOCORONARY BYPASS GRAFT Procedures There is no data. Results Test [...] 7-25 CREATININE 0.73 mg/dL 0.50-1.05 eGFR NON-AFR. BRITISH 94 mL/min/1.73m2 > OR = 60 eGFR [...] 8 U/L 10-35 ALT 9 U/L 6-29 Comprehensive Metabolic Panel - 04/07/20 20:19 Albumin 4.5 g/dL 3.6-5.1 ALP 105 U/L 35-130 ALT 14 U/L 6-45 Anion Gap 18 6-14 AST 9 U/L 2-40 BUN 16 mg/dL 5-25 Calcium 9.7 mg/dL 8.3-10.4 Chloride 102 mmol/L 95-114 CO2 22 mEq/L 22-33 Creat 1.02 mg/dL 0.50-1.50 eGFR 56 mL/min/1.73m2 >59 Globulin 3.4 g/dL 2.3-3.5 Glucose 309 mg/dL 70-110 Osmo 297 280-295 Potassium 4.3 mmol/L 3.5-5.3 Sodium 138 mmol/L 134-148 TBil 0.3 mg/dL 0.2-1.2 TP 7.9 g/dL 6.0-8.3 EKG - 04/07/20 20:21 EKG Complete Serum or plasma troponin i.cardiac measu rement (mass/volume) - 04/07/20 23:25 Serum or plasma troponin i.cardiac measurement (mass/v olume) < ng/mL <0.028 Methicillin resistant Staphylococcus aur eus (MRSA) screening culture - 04/07/20 23:30 Methicillin resistant Staphylococcus aureus (MRSA) scr eening culture NEG NRG Capillary blood glucose measurement by g lucometer (mass/volume) - 04/08/20 00:08 Capillary blood glucose measurement by glucometer (mas s/volume) 233 mg/dL 70-110 Whole blood basic metabolic panel - 11/27 03:07 Serum or plasma sodium measurement (moles/volume) 137 mmol/L 135-145 Serum or plasma potassium measurement (moles/volume) 3.8 mmol/L 3.6-5.0 Serum or plasma chloride measurement (moles/volume) 101 mmol/L 98-107 Carbon dioxide 23 mmol/L 21-32 Serum or plasma anion gap determination (moles/volume) 13 mmol/L 5-14 Serum or plasma urea nitrogen measurement (mass/volume ) 16 mg/dL 7-18 Serum or plasma creatinine measurement (mass/volume) 0.86 mg/dL 0.60-1.30 Serum or plasma urea nitrogen/creatinine mass ratio 19 NRG Serum or plasma creatinine measurement w ith calculation of estimated glomerular filtration rate > NRG Serum or plasma glucose measurement (mass/volume) 301 mg/dL 70-105 Serum or plasma calcium measurement (mass/volume) 9.4 mg/dL 8.5-10.1 Serum or plasma phosphate measurement (m ass/volume) - 04/08/20 03:07 Serum or plasma phosphate measurement (mass/volume) 4.3 mg/dL 2.3-4.7 Magnesium - 04/08/20 03:07 Magnesium 1.8 mg/dL 1.6-2.4 Complete blood count (CBC) with automate d white blood cell (WBC) differential - 04/08/20 03:07 Blood leukocytes automated count (number/volume) 10.8 10*3/uL 4.3-11.0 Blood erythrocytes automated count (number/volume) 4.71 10*6/uL 4.35-5.85 Venous blood hemoglobin measurement (mass/volume) 14.4 g/dL 11.5-16.0 Blood hematocrit (volume fraction) 42 % 35-52 Automated erythrocyte mean corpuscular volume 90 [ foz_us] 80-99 Automated erythrocyte mean corpuscular h emoglobin (mass per erythrocyte) 31 pg 25-34 Automated erythrocyte mean corpuscular h emoglobin concentration measurement (mass/volume) 34 g/dL 32-36 Automated erythrocyte distribution width ratio 13. 6 % 10.0- 14.5 Automated blood platelet count (count/volume) 192 10*3/uL 130-400 Automated blood platelet mean volume measurement 11.7 [foz_us] 7.4-10.4 Automated blood neutrophils/100 leukocytes 54 % 42-75 Automated blood lymphocytes/100 leukocytes 38 % 12-44 Blood monocytes/100 leukocytes 7 % 0-12 Automated blood eosinophils/100 leukocytes 1 % 0-10 Automated blood basophils/100 leukocytes 0 % 0-10 Blood neutrophils automated count (number/volume) 5.8 10*3 1.8-7.8 Blood lymphocytes automated count (number/volume) 4.2 10*3 1.0-4.0 Blood monocytes automated count (number/volume) 0. 8 10*3 0.0-1.0 Automated eosinophil count 0.1 10*3/uL 0 .0-0.3 Automated blood basophil count (count/volume) 0.0 10*3/uL 0.0-0.1 Lipid 1996 panel - 04/08/20 03:07 Serum or plasma triglyceride measurement (mass/volume) 195 mg/dL <150 Serum or plasma cholesterol measurement (mass/volume) 178 mg/dL < 200 Serum or plasma cholesterol in HDL measurement (mass/v olume) 55 mg/dL 40-60 Cholesterol in LDL [mass/volume] in serum or plasma by direct assay 110 mg/dL 1-129 Serum or plasma cholesterol in VLDL measurement (mass/ volume) 39 mg/dL 5-40 Capillary blood glucose measurement by g lucometer (mass/volume) - 04/08/20 10:53 Capillary blood glucose measurement by glucometer (mas s/volume) 264 mg/dL 70-110 PT panel in platelet poor plasma by coag ulation assay - 04/08/20 13:59 Prothrombin time (PT) in platelet poor plasma by coagu lation assay 12.5 s 12.2-14.7 INR in platelet poor plasma or blood by coagulation as say 0.9 0.8-1.4 Activated partial thromboplastin time (a PTT) in platelet poor plasma bycoagulation assay - 04/08/20 13:59 Activated partial thromboplastin time (a PTT) in platelet poor plasma bycoagulation assay 26 s 24-35 Capillary blood glucose measurement by g lucometer (mass/volume) - 04/08/20 17:13 Capillary blood glucose measurement by glucometer (mas s/volume) 186 mg/dL 70-110 Capillary blood glucose measurement by g lucometer (mass/volume) - 04/08/20 20:44 Capillary blood glucose measurement by glucometer (mas s/volume) 303 mg/dL 70-110 Complete blood count (CBC) with automate d white blood cell (WBC) differential - 04/09/20 04:07 Blood leukocytes automated count (number/volume) 9.9 10*3/uL 4.3-11.0 Blood erythrocytes automated count (number/volume) 4.45 10*6/uL 4.35-5.85 Venous blood hemoglobin measurement (mass/volume) 13.6 g/dL 11.5-16.0 Blood hematocrit (volume fraction) 41 % 35-52 Automated erythrocyte mean corpuscular volume 91 [ foz_us] 80-99 Automated erythrocyte mean corpuscular h emoglobin (mass per erythrocyte) 31 pg 25-34 Automated erythrocyte mean corpuscular h emoglobin concentration measurement (mass/volume) 34 g/dL 32-36 Automated erythrocyte distribution width ratio 13. 4 % 10.0- 14.5 Automated blood platelet count (count/volume) 176 10*3/uL 130-400 Automated blood platelet mean volume measurement 11.3 [foz_us] 7.4-10.4 Automated blood neutrophils/100 leukocytes 65 % 42-75 Automated blood lymphocytes/100 leukocytes 28 % 12-44 Blood monocytes/100 leukocytes 6 % 0-12 Automated blood eosinophils/100 leukocytes 1 % 0-10 Automated blood basophils/100 leukocytes 0 % 0-10 Blood neutrophils automated count (number/volume) 6.4 10*3 1.8-7.8 Blood lymphocytes automated count (number/volume) 2.8 10*3 1.0-4.0 Blood monocytes automated count (number/volume) 0. 6 10*3 0.0-1.0 Automated eosinophil count 0.1 10*3/uL 0 .0-0.3 Automated blood basophil count (count/volume) 0.0 10*3/uL 0.0-0.1 Whole blood basic metabolic panel - 12/28 04:07 Serum or plasma sodium measurement (moles/volume) 136 mmol/L 135-145 Serum or plasma potassium measurement (moles/volume) 3.8 mmol/L 3.6-5.0 Serum or plasma chloride measurement (moles/volume) 103 mmol/L 98-107 Carbon dioxide 21 mmol/L 21-32 Serum or plasma anion gap determination (moles/volume) 12 mmol/L 5-14 Serum or plasma urea nitrogen measurement (mass/volume ) 14 mg/dL 7-18 Serum or plasma creatinine measurement (mass/volume) 0.77 mg/dL 0.60-1.30 Serum or plasma urea nitrogen/creatinine mass ratio 18 NRG Serum or plasma creatinine measurement w ith calculation of estimated glomerular filtration rate > NRG Serum or plasma glucose measurement (mass/volume) 287 mg/dL 70-105 Serum or plasma calcium measurement (mass/volume) 8.8 mg/dL 8.5-10.1 Serum or plasma phosphate measurement (m ass/volume) - 04/09/20 04:07 Serum or plasma phosphate measurement (mass/volume) 4.1 mg/dL 2.3-4.7 Magnesium - 04/09/20 04:07 Magnesium 1.6 mg/dL 1.6-2.4 Capillary blood glucose measurement by g lucometer (mass/volume) - 04/09/20 05:40 Capillary blood glucose measurement by glucometer (mas s/volume) 241 mg/dL 70-110 Capillary blood glucose measurement by g lucometer (mass/volume) - 04/09/20 10:58 Capillary blood glucose measurement by glucometer (mas s/volume) 354 mg/dL 70-110 Encounters ACCT No. Visit Date/Time Discharge Status Pt. Type Provider Facility Loc./Unit Complaint [id number] 03/09/2019 11:20:00 03/09/2019 23:59: 59 CLS Outpatient JOSHLIANNE ESCAMILLA [facility] [id number] 10/16/2019 08:40:00 Document Registration [id number] 01/12/2019 12:00:00 Document Registration [id number] 04/07/2020 23:15:00 13:15:00 DIS Outpatient MENG SUTHERLAND DO [facility] CATH CP [id number] 11/22/2019 12:30:00 23:59:59 CLS PreadARIEL Valle MD [facility] CARD CHEST PAIN,CORONARY ART DISEASE,HYPERTENSION [id number] 11/20/2019 10:30:00 23:59:59 CLS Preadmit ARIEL LEYVA MD [facility] CARD CHEST PAIN,CORONARY ART DISEASE,ESSENTIAL HYPERTEN [id number] 03/09/2019 11:53:00 13:19:00 DIS Emergency BLANCA GOINS DO [facility] ER FS LT EYE ISSUE; HIGH BP; HEADACHE [id number] 04/07/2020 19:40:00 04/07/2020 22:45 :00 DIS Outpatient Bridget Bneitez [id number] 04/07/2020 20:22:30 Document Registration
== END 2020-04-09 13:15 | disposition home or self-care (01) ==
LOC: ICU 23:15 → UNDOADMOB 23:15 → CATH 23:15 → CSD 04-08 11:29 → ICU 04-08 11:29 → CSD 04-08 11:29 → CATH 04-09 13:15 → UNDODISOB 04-09 13:15
PROVIDERS: ATTEND Internal Medicine
DX: I25.110 Atherosclerotic heart disease of native coronary artery with unstable angina pectoris (principal); I77.1 Stricture of artery; I10 Essential (primary) hypertension; I16.0 Hypertensive urgency; I21.9 Acute myocardial infarction, unspecified; M19.90 Unspecified osteoarthritis, unspecified site; E11.9 Type 2 diabetes mellitus without complications; E78.5 Hyperlipidemia, unspecified; K21.9 Gastro-esophageal reflux disease without esophagitis; F17.210 Nicotine dependence, cigarettes, uncomplicated; F41.9 Anxiety disorder, unspecified; Z91.048 Other nonmedicinal substance allergy status; Z88.1 Allergy status to other antibiotic agents; Z79.4 Long term (current) use of insulin; Z95.1 Presence of aortocoronary bypass graft; Z79.82 Long term (current) use of aspirin; Z79.02 Long term (current) use of antithrombotics/antiplatelets
CPT/HCPCS: 71045 ×2; 78452; 80048 ×2; 80061; 82962 ×2; 83735 ×2; 84100 ×2; 84484; 85025 ×2; 85610; 85730; 87081; 93005 ×2; 93017; 93306; 93459; 93571; 94640 ×2; 94760 ×2; A9502; C1725; C1760; C1769; C1874; C1887; C1894; C9600; G0378; G0379; 36415; 99211